=== PATIENT | male | born 1965 | race Caucasian/White ===

== ENCOUNTER 2017-04-04 07:07 | Emergency (ER) | payer BC ==
--- NOTE | 2017-04-04 07:37 | EDM.PDOC ---
ED HPI GENERAL MEDICAL PROBLEM - General Chief Complaint: Chest Pain Stated Complaint: CHEST PAIN Time Seen by Provider: 04/04/17 07:15 Source of Information: Reports: Patient, Family (), RN Notes Reviewed History Limitations: Reports: No Limitations - History of Present Illness INITIAL COMMENTS - FREE TEXT/NARRATIVE: The patient states that he developed left anterior axillary and left sided chest pain around 04:30 this morning while straightening up an office at work. He describes the character as a dull, throbbing pain. It waxes and wanes. It is made worse if the patient is moving around, better if he remains still. No associated nausea, dyspnea, diaphoresis, or sense of impending doom. The patient states that he had similar symptoms in approximately 2007. He went to the ED, a workup was negative, and he subsequently had a stress test that was negative. The patient's PCP is Dr. Lila Butler. Left Chest Pain Score (Numeric/FACES): 5 - Related Data Allergies Allergy/AdvReac Type Severity Reaction Status Date / Time codeine Allergy Severe Shortness Verified 04/04/17 07:13 of Breath cephalexin monohydrate Allergy Hives Verified 04/04/17 07:13 [From Keflex] droperidol [From Inapsine] Allergy Anxiety Verified 04/04/17 07:13 Home Meds: Home Meds Buprenorphine HCl/Naloxone HCl [Suboxone 4 mg-1 mg Sl Film] 1 strip PO DAILY [History] Orphenadrine [Norflex] 1 tab PO Q12H #20 tab.er 04/04/17 [Rx] Past Medical History Musculoskeletal History: Reports: Back Pain, Chronic (due to DDD) Psychiatric History: Reports: Anxiety, Depression Endocrine/Metabolic History: Reports: Obesity/BMI 30+ - Past Surgical History HEENT Surgical History: Reports: Oral Surgery ([place] teeth extraction), Tonsillectomy GI Surgical History: Reports: Hernia, Abdominal Musculoskeletal Surgical History: Reports: Shoulder Surgery (left, arthroscopic) , Other (See Below) (Left hand surgery. 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, [employer]) ED ROS GENERAL - Review of Systems Review Of Systems: See Below Constitutional: Reports: No Symptoms HEENT: Reports: No Symptoms Respiratory: Reports: No Symptoms Cardiovascular: Reports: No Symptoms Endocrine: Reports: No Symptoms GI/Abdominal: Reports: No Symptoms : Reports: No Symptoms Musculoskeletal: Reports: No Symptoms Skin: Reports: No Symptoms Neurological: Reports: No Symptoms Psychiatric: Reports: No Symptoms Hematologic/Lymphatic: Reports: No Symptoms Immunologic: Reports: No Symptoms ED EXAM, GENERAL - Physical Exam Exam: See Below Exam Limited By: No Limitations General Appearance: Alert, WD/WN, No Apparent Distress Eye Exam: Bilateral Eye: Normal Inspection Ears: Normal External Exam, Hearing Grossly Normal Ear Exam: Bilateral Ear: Auricle Normal Nose: Normal Inspection, No Blood Throat/Mouth: Normal Inspection, Normal Lips, Normal Voice, No Airway Compromise Head: Atraumatic, Normocephalic Neck: Normal Inspection, Full Range of Motion Respiratory/Chest: No Respiratory Distress, Lungs Clear, Normal Breath Sounds, No Accessory Muscle Use, Other (Reproducible tenderness to palpation of the lateral aspect of the patient's left pectoral muscle) Cardiovascular: Normal Peripheral Pulses, Regular Rate, Rhythm, No Gallop, No JVD, No Murmur, No Rub Peripheral Pulses: 4+: Radial (L), Radial (R) GI/Abdominal: Normal Bowel Sounds, Soft, Non-Tender, No Organomegaly, No Distention, No Abnormal Bruit, No Mass (Male) Exam: Deferred Rectal (Males) Exam: Deferred Back Exam: Normal Inspection, Full Range of Motion, NT Extremities: Normal Inspection, Normal Range of Motion, No Pedal Edema, Normal Capillary Refill Neurological: Alert, Oriented, Normal Cognition, No Motor/Sensory Deficits Psychiatric: Normal Affect Skin Exam: Warm, Dry, Intact, Normal Color, No Rash Lymphatic: No Adenopathy EKG INTERPRETATION EKG Date: 04/04/17 Time: 07:13 Rhythm: NSR Rate (beats/min): 60 G[place]y: normal P-wave: absent (1st degree AVB) QRS: normal ST-T: normal QT: normal Comparison: no change (07/31/2016) Course - Vital Signs Last Recorded V/S: Last Vital Signs Temp 36.9 C 04/04/17 07:14 Pulse 76 04/04/17 09:07 Resp 12 04/04/17 09:07 BP 140/81 04/04/17 09:07 Pulse Ox 95 04/04/17 09:07 - Orders/Labs/Meds Orders: Active Orders 24 hr Category Date Time Status EKG Documentation Completion [RC] STAT Care 04/04/17 07:27 Active Labs: Laboratory Tests 04/04/17 04/04/17 04/04/17 Range/Units 07:52 07:52 07:52 WBC 8.80 (4.23-9.07) K/mm3 RBC 5.18 (4.63-6.08) M/mm3 Hgb 15.6 (13.7-17.5) gm/L Hct 44.8 (40.1-51.0) % MCV 86.5 (79.0-92.2) fl MCH 30.1 (25.7-32.2) pg MCHC 34.8 (32.2-35.5) g/dl RDW Std Deviation 43.2 (35.1-43.9) fL Plt Count 281 (163-337) K/mm3 MPV 10.5 (9.4-12.3) fl Neutrophils % (Manual) 73 H (40-60) % Band Neutrophils % 0 (0-10) % Lymphocytes % (Manual) 18 L (20-40) % Atypical Lymphs % 0 % Monocytes % (Manual) 6 (2-10) % Eosinophils % (Manual) 3 (0.8-7.0) % Basophils % (Manual) 0 L (0.2-1.2) Platelet Estimate Adequate RBC Morph Comment Normal PT 10.4 (8.0-13.0) SECONDS INR 0.96 APTT 30 (22-36) SECONDS D-Dimer, Quantitative 0.44 (0.19-0.59) mg/L Sodium 139 (136-145) mEq/L Potassium 4.2 (3.5-5.1) mEq/L Chloride 105 (98-107) mEq/L Carbon Dioxide 26 (21-32) mEq/L Anion Gap 12.2 (5-15) BUN 14 (7-18) mg/dL Creatinine 0.8 (0.7-1.3) mg/dL Est Cr Clr Drug Dosing 104.43 mL/min Estimated GFR (MDRD) > 60 (>60) mL/min BUN/Creatinine Ratio 17.5 (14-18) Glucose 107 H (74-106) mg/dL Calcium 9.2 (8.5-10.1) mg/dL Total Bilirubin 0.4 (0.2-1.0) mg/dL AST 17 (15-37) U/L ALT 42 (16-63) U/L Alkaline Phosphatase 78 (46-116) U/L Troponin I < 0.017 (0.00-0.056) ng/mL B-Natriuretic Peptide (0-100) pg/mL Total Protein 7.9 (6.4-8.2) g/dl Albumin 3.9 (3.4-5.0) g/dl Globulin 4.0 gm/dL Albumin/Globulin Ratio 1.0 (1-2) 04/04/17 Range/Units 07:52 WBC (4.23-9.07) K/mm3 RBC (4.63-6.08) M/mm3 Hgb (13.7-17.5) gm/L Hct (40.1-51.0) % MCV (79.0-92.2) fl MCH (25.7-32.2) pg MCHC (32.2-35.5) g/dl RDW Std Deviation (35.1-43.9) fL Plt Count (163-337) K/mm3 MPV (9.4-12.3) fl Neutrophils % (Manual) (40-60) % Band Neutrophils % (0-10) % Lymphocytes % (Manual) (20-40) % Atypical Lymphs % % Monocytes % (Manual) (2-10) % Eosinophils % (Manual) (0.8-7.0) % Basophils % (Manual) (0.2-1.2) Platelet Estimate RBC Morph Comment PT (8.0-13.0) SECONDS INR APTT (22-36) SECONDS D-Dimer, Quantitative (0.19-0.59) mg/L Sodium (136-145) mEq/L Potassium (3.5-5.1) mEq/L Chloride (98-107) mEq/L Carbon Dioxide (21-32) mEq/L Anion Gap (5-15) BUN (7-18) mg/dL Creatinine (0.7-1.3) mg/dL Est Cr Clr Drug Dosing mL/min Estimated GFR (MDRD) (>60) mL/min BUN/Creatinine Ratio (14-18) Glucose (74-106) mg/dL Calcium (8.5-10.1) mg/dL Total Bilirubin (0.2-1.0) mg/dL AST (15-37) U/L ALT (16-63) U/L Alkaline Phosphatase (46-116) U/L Troponin I (0.00-0.056) ng/mL B-Natriuretic Peptide < 15 (0-100) pg/mL Total Protein (6.4-8.2) g/dl Albumin (3.4-5.0) g/dl Globulin gm/dL Albumin/Globulin Ratio (1-2) Meds: Medications Discontinued Medications Generic Name Dose Route Start Last Admin Trade Name Freq PRN Reason Stop Dose Admin Orphenadrine Citrate 100 mg 04/04/17 08:54 04/04/17 09:00 Norflex PO 04/04/17 08:55 100 mg ONETIME STA Administration - Radiology Interpretation Free Text/Narrative:: Two-view chest radiograph appears to be grossly normal. Cardiac silhouette is within normal limits. No pulmonary vascular congestion. No pleural effusions. No focal infiltrate. No pneumothorax. Platelike atelectasis vs. scarring noted bilateral lower lungs, more prominent on the right. Formal read per the Radiologist pending. - Re-Assessments/Exams Free Text/Narrative Re-Assessment/Exam: 04/04/17 08:54 Test results discussed with the patient. Today's workup is entirely unremarkable. As the patient's pain is reproducible with palpation, I believe it most likely that the patient's pain is due to a muscle spasm. I will start him on Norflex and e-prescribe the same. Departure - Departure Time of Disposition: 08:55 Disposition: Home, Self-Care 01 Condition: good Clinical Impression: Musculoskeletal chest pain - Discharge Information Prescriptions: Orphenadrine [Norflex] 1 tab PO Q12H #20 tab.er Instructions: Nonspecific Chest Pain, [id number] Referrals: Lila Butler DO [Primary Care Provider] - Forms: ED Department Discharge Additional Instructions: You were seen in the emergency room for pain in the front of your left armpit and left side of your chest. Workup in the ER included blood work, an ECG, and a chest x-ray. Your entire workup was unremarkable. You have not had a heart attack. You do not have a collapsed lung. You do not have a blood clot in your lungs. Your chest pain is MOST LIKELY due to a muscle spasm. You have been started on the muscle relaxant Norflex. Take one tablet every 12 hours, as prescribed. Followup with your PCP, Dr. Butler, as needed. If any other problems, please do not hesitate to return to the ER. - My Orders Last 24 Hours: My Active Orders 04/04/17 07:27 EKG Documentation Completion [RC] STAT - Assessment/Plan Last 24 Hours: My Active Orders 04/04/17 07:27 EKG Documentation Completion [RC] STAT
[2017-04-04] MEDS ORDERED: Orphenadrine 100 MG Tab.ER PO STA (08:54)
[2017-04-04 09:09] VITALS: BP 140/81
--- NOTE | 2017-04-04 11:28 | CR ---
Chest: Two views of the chest are obtained. Comparison: Previous chest x-ray of 07/31/16. Linear areas of scarring are seen within both lungs which appear stable. No acute infiltrates are seen. Heart size and mediastinum are within normal limits. Bony structures are within normal limits for the patient's age. Impression: 1. Stable areas of scarring within both lungs. Nothing acute is identified on two-view chest x-ray. Diagnostic code #2
== END 2017-04-04 09:09 | disposition home or self-care (01) ==
LOC: JD.ED 07:07
DX: R07.89 Other chest pain (principal); Z87.891 Personal history of nicotine dependence
CPT/HCPCS: 36415; 71020; 80053; 83880; 84484; 85025; 85379; 85610; 85730; 93005; 99285; A9270; 99284

== ENCOUNTER 2019-01-31 00:26 | Emergency (ER) | payer SELFPAY ==
[2019-01-31 00:40] VITALS: BP 145/98
[2019-01-31] MEDS ORDERED: LORazepam 1 MG Tab PO ONE (01:01)
--- NOTE | 2019-01-31 01:07 | EDM.PDOC ---
ED HPI GENERAL MEDICAL PROBLEM - General Chief Complaint: General Stated Complaint: ANXIETY Time Seen by Provider: 01/31/19 00:49 Source of Information: Reports: Patient, Family (), RN Notes Reviewed History Limitations: Reports: No Limitations - History of Present Illness INITIAL COMMENTS - FREE TEXT/NARRATIVE: The patient states that he has been feeling anxious since around 22:00 this evening, with feeling antsy, chest pounding, bouncing off the bedoya, and diaphoresis. He states that he has a history of panic attacks, although he is not currently on any medication for anxiety. The patient reports similar symptoms in the past, including about a year ago. He states that he was given Ativan, and his symptoms resolved. He acknowledges that he did not follow-up after that ED visit. And states that he is willing, however, to go on to a long-term anxiolytic. The patient reports that he went on a Slim Fast keto diet around 1 month ago, and that he has lost 13 pounds so far. He reports that he has been constipated. He states that he quit smoking 8 days ago. The patient's PCP is Ximena Johnson. - Related Data Allergies Allergy/AdvReac Type Severity Reaction Status Date / Time codeine Allergy Severe Shortness Verified 01/31/19 00:40 of Breath cephalexin monohydrate Allergy Hives Verified 01/31/19 00:40 [From Keflex] droperidol [From Inapsine] Allergy Anxiety Verified 01/31/19 00:40 Home Meds: Home Meds . [No Known Home Meds] 01/31/19 [History] Past Medical History Musculoskeletal History: Reports: Back Pain, Chronic (DDD) Psychiatric History: Reports: Anxiety (untreated) Endocrine/Metabolic History: Reports: Obesity/BMI 30+ - Past Surgical History HEENT Surgical History: Reports: Tonsillectomy GI Surgical History: Reports: Hernia, Abdominal (para-umbilical) Musculoskeletal Surgical History: Reports: Shoulder Surgery (left, arthroscopic) , Other (See Below) (Left hand reconstruction) Social & Family History - Family History Oncologic: Reports: Breast, Colon, Lung - Tobacco Use Smoking Status *Q: Former Smoker Years of Tobacco use: 37 Packs/Tins Daily: 1 Month/Year Tobacco Last Used: Quit 01/22/2019 - Caffeine Use Caffeine Use: Reports: Coffee - Alcohol Use Alcohol Use History: Yes Date/Time of Last Drink Comment: No alcohol since 2009 - Recreational Drug Use Recreational Drug Use: No - Living Situation & Occupation Living situation: Reports: , with Spouse 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 ED EXAM, GENERAL - Physical Exam Exam: See Below Exam Limited By: No Limitations General Appearance: Alert, WD/WN, Anxious (Pacing in exam room) Eye Exam: Bilateral Eye: EOMI, Normal Inspection Ears: Normal External Exam, Hearing Grossly Normal Nose: Normal Inspection Throat/Mouth: Normal Inspection, Normal Lips, Normal Voice, No Airway Compromise Head: Atraumatic, Normocephalic Neck: Normal Inspection, Full Range of Motion Respiratory/Chest: No Respiratory Distress, Lungs Clear, Normal Breath Sounds, No Accessory Muscle Use Cardiovascular: Normal Peripheral Pulses, Regular Rate, Rhythm, No Gallop, No JVD, No Murmur, No Rub Peripheral Pulses: 4+: Radial (L), Radial (R) GI/Abdominal: Normal Bowel Sounds, Soft, Non-Tender, No Organomegaly, No Distention, No Abnormal Bruit, No Mass, Other (Obese) (Male) Exam: Deferred Rectal (Males) Exam: Deferred Back Exam: Normal Inspection, Full Range of Motion, NT Extremities: Normal Inspection, Normal Range of Motion, No Pedal Edema, Normal Capillary Refill Neurological: Alert, Oriented, Normal Cognition, No Motor/Sensory Deficits Psychiatric: Normal Affect Skin Exam: Warm, Dry, Intact, Normal Color, No Rash Course - Vital Signs Last Recorded V/S: Last Vital Signs Temp 36.9 C 01/31/19 00:37 Pulse 65 01/31/19 00:37 Resp 18 01/31/19 00:37 BP 145/98 H 01/31/19 00:37 Pulse Ox 98 01/31/19 00:37 - Orders/Labs/Meds Meds: Medications Discontinued Medications Generic Name Dose Route Start Last Admin Trade Name Christiana PRN Reason Stop Dose Admin Lorazepam 1 mg 01/31/19 01:01 01/31/19 01:15 Ativan PO 01/31/19 01:02 1 mg ONETIME ONE Administration - Re-Assessments/Exams Free Text/Narrative Re-Assessment/Exam: 01/31/19 01:03 The patient will receive 1 mg of oral Ativan here in the ED, then be discharged home. He will then follow-up with his PCP to discuss long-term treatment options for anxiety. Departure - Departure Time of Disposition: 01:04 Disposition: Home, Self-Care 01 Condition: Good Clinical Impression: Anxiety - Discharge Information *PRESCRIPTION DRUG MONITORING PROGRAM REVIEWED*: Not Applicable *COPY OF PRESCRIPTION DRUG MONITORING REPORT IN PATIENT MANDO: Not Applicable Instructions: Generalized Anxiety Disorder, Adult Referrals: Ximena Johnson, DORMITORY KEEPER [Primary Care Provider] - Forms: ED Department Discharge Additional Instructions: You were seen in the emergency room for feelings of anxiety with chest pounding , agitation, and sweatiness. You were treated with Ativan in the ER. Ativan is not a good long-term solution for anxiety. Please follow-up with your PCP, Ximena Johnson, to discuss long-term treatment options for anxiety, that will likely include a SSRI or SNRI. If any other problems, please do not hesitate to return to the ER.
== END 2019-01-31 01:16 | disposition home or self-care (01) ==
LOC: JD.ED 00:26
DX: F41.9 Anxiety disorder, unspecified (principal); Z88.8 Allergy status to other drugs, medicaments and biological substances; Z87.891 Personal history of nicotine dependence
CPT/HCPCS: 99283; A9270

== ENCOUNTER 2020-09-17 16:34 | Observation (INO) | payer OTHER ==
[2020-09-17] MEDS ORDERED: Ondansetron 4 MG/2 ML SDV IVPUSH ONE (16:55)
[2020-09-17] MEDS ORDERED: HYDROmorphone 1 MG/ML Syringe IVPUSH STA (16:55)
[2020-09-17] MEDS ORDERED: Sodium Chloride 0.9% 1,000 ML IV SCH (17:00)
--- NOTE | 2020-09-17 17:04 | EDM.PDOC ---
ED HPI GENERAL MEDICAL PROBLEM - General Chief Complaint: Abdominal Pain Stated Complaint: ABDOMINAL PAIN Time Seen by Provider: 09/17/20 16:45 Source of Information: Reports: Patient, RN Notes Reviewed History Limitations: Reports: No Limitations - History of Present Illness INITIAL COMMENTS - FREE TEXT/NARRATIVE: Patient is a 54-year-old male who presents to the ED for the evaluation of his upper abdominal pain. He notes this started about 11 AM. He states that it went away initially, now has been steady for about the past 2 hours. He points to his epigastric region, and somewhat towards the left side when asked where the pain is. He has had a hernia repair, but still retains his gallbladder and appendix. Patient notes that he had tacos last night for food, and ate some leftover tacos this morning. He has tried Gas-X, and other anti-gas medications, as he felt somewhat bloated. He also notes that his had 2 bowel movements today. He denies any nausea vomiting or diarrhea, he is not had any fevers or chills, cough or shortness of breath. Patient is somewhat diaphoretic, and walking about the room sporadically, stating that he is in pain. Upper Abdomen Pain Score (Numeric/FACES): 10 - Related Data Allergies Allergy/AdvReac Type Severity Reaction Status Date / Time codeine Allergy Severe Shortness Verified 01/31/19 00:40 of Breath cephalexin monohydrate Allergy Hives Verified 01/31/19 00:40 [From Keflex] droperidol [From Inapsine] Allergy Anxiety Verified 01/31/19 00:40 Home Meds: Home Meds Buprenorphine HCl/Naloxone HCl [Suboxone 4 mg-1 mg Sl Film] 1 tab PO DAILY 09/17/20 [History] Past Medical History Musculoskeletal History: Reports: Back Pain, Chronic Other Musculoskeletal History: Herniated L4, L5, S1 Psychiatric History: Reports: Anxiety Endocrine/Metabolic History: Reports: Obesity/BMI 30+ - Past Surgical History HEENT Surgical History: Reports: Tonsillectomy GI Surgical History: Reports: Hernia, Abdominal (umbilical hernia repaired when he was a baby.) Neurological Surgical History: Reports: Other (See Below) Other Neurological Surgeries/Procedures: back pain with ruptured disc L4-5 and S1 Musculoskeletal Surgical History: Reports: Shoulder Surgery, Other (See Below) Social & Family History - Family History Oncologic: Reports: Breast, Colon, Lung - Tobacco Use Tobacco Use Status *Q: Never Tobacco User - Caffeine Use Caffeine Use: Reports: Coffee, Soda - Recreational Drug Use Recreational Drug Use: Yes Recreational Drug Type: Reports: Other (see below) Other Recreational Drug Type: timbo-tab Recreational Drug Use Comment: 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 ED EXAM, GI/ABD - Physical Exam Exam: See Below Exam Limited By: No Limitations General Appearance: Alert, WD/WN, No Apparent Distress (pt appears to be in some amount of pain, he is diaphoretic and looks generaly uncomfortable) Eyes: Bilateral: Normal Appearance Head: Atraumatic, Normocephalic Respiratory/Chest: No Respiratory Distress, Lungs Clear, Normal Breath Sounds, No Accessory Muscle Use, Chest Non-Tender Cardiovascular: Normal Peripheral Pulses, Regular Rate, Rhythm, No Murmur GI/Abdominal Exam: Normal Bowel Sounds, Soft, No Distention, No Mass, Tender (epigastrum is main focus, but he states that his abdomen is generally tender) Extremities: Normal Inspection, Normal Capillary Refill Neurological: Alert, Oriented, Normal Cognition, No Motor/Sensory Deficits Psychiatric: Anxious Skin Exam: Warm, Intact, Normal Color, No Rash, Diaphoretic (generalized) #1 Interpretation EKG Date: 09/17/20 Time: 18:05 Rhythm: NSR Rate (Beats/Min): 66 Julian: Normal P-Wave: Present QRS: Normal ST-T: Normal QT: Normal Comparison: No Change EKG Interpretation Comments: EKG was reviewed by myself and Dr. Love, there is no obvious ischemic change. EKG was also compared to a prior one taken in March 2017 with no discernible change noted. Course - Vital Signs Last Recorded V/S: Last Vital Signs Temp 95.3 F L 09/17/20 16:51 Pulse 91 09/17/20 16:51 Resp 20 09/17/20 16:51 BP 162/107 H 09/17/20 16:51 Pulse Ox 100 09/17/20 16:51 - Orders/Labs/Meds Orders: Active Orders 24 hr Category Date Time Status Patient Status [ADT] Routine ADT 09/17/20 20:12 Active Activity as Tolerated [RC] .Routine Care 09/17/20 20:12 Active Antiembolic Devices [RC] PER UNIT ROUTINE Care 09/17/20 20:12 Active EKG Documentation Completion [RC] STAT Care 09/17/20 16:56 Active Notify Provider Consults [RC] ASDIRECTED Care 09/17/20 19:25 Ordered Oxygen Therapy [RC] PRN Care 09/17/20 20:12 Active RT Incentive Spirometry [RC] Q1HWA Care 09/17/20 20:12 Active Vital Signs [RC] Q4H Care 09/17/20 20:12 Active Consult to Physician [CONS] Stat Cons 09/17/20 19:25 Ordered Nothing Per Oral Diet [DIET] Diet 09/17/20 Breakfast Active Abdomen Pelvis w Cont [CT] Stat Exams 09/17/20 16:55 Ordered BASIC METABOLIC PANEL,BMP [CHEM] AM Lab 09/18/20 05:11 Ordered CBC WITH AUTO DIFF [HEME] AM Lab 09/18/20 05:11 Ordered CORONAVIRUS COVID-19 DEBORAH [MOLEC] Stat Lab 09/17/20 20:08 Ordered Acetaminophen [TylenoL] Med 09/17/20 20:15 Ordered 975 mg PO Q8H HYDROmorphone [Dilaudid] Med 09/17/20 20:14 Ordered 1 mg IVPUSH Q3H PRN Lactated Ringers [Ringers, Lactated] 1,000 ml Med 09/17/20 20:15 Ordered IV ASDIRECTED Pantoprazole [ProTONIX IV] 40 mg Med 09/17/20 21:00 Ordered Sodium Chloride 0.9% [Normal Saline] 100 ml IV BID Sodium Chloride 0.9% [Normal Saline] 1,000 ml Med 09/17/20 17:00 Active IV ASDIRECTED Sucralfate [Carafate] Med 09/17/20 22:00 Ordered 1 gm PO QIDACANDBED Schedule Procedure [COMM] Routine Oth 09/17/20 20:15 Ordered Sequential Compression Device [OM.PC] Routine Oth 09/17/20 20:12 Ordered Resuscitation Status Routine Resus Stat 09/17/20 20:12 Ordered Medication Orders Acetaminophen (Tylenol) 975 mg PO Q8H LOVELY Hydromorphone HCl (Dilaudid) 1 mg IVPUSH Q3H PRN PRN Reason: Pain Sodium Chloride (Normal Saline) 1,000 mls @ 999 mls/hr IV ASDIRECTED [facility] Last Admin: 09/17/20 17:27 Dose: 999 mls/hr Documented by: COOPER Lactated Ringer's (Ringers, Lactated) 1,000 mls @ 100 mls/hr IV ASDIRECTED LOVELY Pantoprazole Sodium 40 mg/ (Sodium Chloride) 100 mls @ 200 mls/hr IV BID LOVELY Sucralfate (Carafate) 1 gm PO QIDACANDBED [facility] Labs: Laboratory Tests 09/17/20 09/17/20 09/17/20 Range/Units 16:45 16:45 16:45 WBC 14.54 H (4.23-9.07) K/mm3 RBC 5.75 (4.63-6.08) M/mm3 Hgb 17.0 (13.7-17.5) gm/dl Hct 48.0 (40.1-51.0) % MCV 83.5 D (79.0-92.2) fl MCH 29.6 (25.7-32.2) pg MCHC 35.4 (32.2-35.5) g/dl RDW Std Deviation 41.6 (35.1-43.9) fL Plt Count 391 H D (163-337) K/mm3 MPV 9.9 (9.4-12.3) fl Neutrophils % (Manual) 74 H (40-60) % Band Neutrophils % 0 (0-10) % Lymphocytes % (Manual) 19 L (20-40) % Atypical Lymphs % 0 % Monocytes % (Manual) 6 (2-10) % Eosinophils % (Manual) 1 (0.8-7.0) % Basophils % (Manual) 0 L (0.2-1.2) Platelet Estimate Adequate RBC Morph Comment Normal Sodium 139 (136-145) mEq/L Potassium 3.8 (3.5-5.1) mEq/L Chloride 102 (98-107) mEq/L Carbon Dioxide 26 (21-32) mEq/L Anion Gap 14.8 (5-15) BUN 24 H (7-18) mg/dL Creatinine 1.0 (0.7-1.3) mg/dL Est Cr Clr Drug Dosing 80.79 mL/min Estimated GFR (MDRD) > 60 (>60) mL/min BUN/Creatinine Ratio 24.0 H (14-18) Glucose 144 H (74-106) mg/dL Calcium 10.0 (8.5-10.1) mg/dL Total Bilirubin 0.5 (0.2-1.0) mg/dL AST 19 (15-37) U/L ALT 48 (16-63) U/L Alkaline Phosphatase 92 (46-116) U/L CK-MB (CK-2) 1.6 (0-3.6) ng/ml Troponin I < 0.017 (0.00-0.056) ng/mL Total Protein 9.0 H (6.4-8.2) g/dl Albumin 4.5 (3.4-5.0) g/dl Globulin 4.5 gm/dL Albumin/Globulin Ratio 1.0 (1-2) Lipase 63 L (73-393) U/L Urine Color (Yellow) Urine Appearance (Clear) Urine pH (5.0-8.0) Ur Specific [place] (1.005-1.030) Urine Protein (Negative) Urine Glucose (UA) (Negative) Urine Ketones (Negative) Urine Occult Blood (Negative) Urine Nitrite (Negative) Urine Bilirubin (Negative) Urine Urobilinogen (0.2-1.0) Ur Leukocyte Esterase (Negative) Urine RBC (0-5) /hpf Urine WBC (0-5) /hpf Ur Squamous Epith Cells (0-5) /hpf Urine Bacteria (FEW) /hpf Urine Mucus (FEW) /hpf 09/17/20 Range/Units 18:50 WBC (4.23-9.07) K/mm3 RBC (4.63-6.08) M/mm3 Hgb (13.7-17.5) gm/dl Hct (40.1-51.0) % MCV (79.0-92.2) fl MCH (25.7-32.2) pg MCHC (32.2-35.5) g/dl RDW Std Deviation (35.1-43.9) fL Plt Count (163-337) K/mm3 MPV (9.4-12.3) fl Neutrophils % (Manual) (40-60) % Band Neutrophils % (0-10) % Lymphocytes % (Manual) (20-40) % Atypical Lymphs % % Monocytes % (Manual) (2-10) % Eosinophils % (Manual) (0.8-7.0) % Basophils % (Manual) (0.2-1.2) Platelet Estimate RBC Morph Comment Sodium (136-145) mEq/L Potassium (3.5-5.1) mEq/L Chloride (98-107) mEq/L Carbon Dioxide (21-32) mEq/L Anion Gap (5-15) BUN (7-18) mg/dL Creatinine (0.7-1.3) mg/dL Est Cr Clr Drug Dosing mL/min Estimated GFR (MDRD) (>60) mL/min BUN/Creatinine Ratio (14-18) Glucose (74-106) mg/dL Calcium (8.5-10.1) mg/dL Total Bilirubin (0.2-1.0) mg/dL AST (15-37) U/L ALT (16-63) U/L Alkaline Phosphatase (46-116) U/L CK-MB (CK-2) (0-3.6) ng/ml Troponin I (0.00-0.056) ng/mL Total Protein (6.4-8.2) g/dl Albumin (3.4-5.0) g/dl Globulin gm/dL Albumin/Globulin Ratio (1-2) Lipase (73-393) U/L Urine Color Yellow (Yellow) Urine Appearance Clear (Clear) Urine pH 7.0 (5.0-8.0) Ur Specific [place] 1.020 (1.005-1.030) Urine Protein Negative (Negative) Urine Glucose (UA) Negative (Negative) Urine Ketones Negative (Negative) Urine Occult Blood Negative (Negative) Urine Nitrite Negative (Negative) Urine Bilirubin Negative (Negative) Urine Urobilinogen 0.2 (0.2-1.0) Ur Leukocyte Esterase Negative (Negative) Urine RBC 0-5 (0-5) /hpf Urine WBC 0-5 (0-5) /hpf Ur Squamous Epith Cells 0-5 (0-5) /hpf Urine Bacteria Few (FEW) /hpf Urine Mucus Few (FEW) /hpf Meds: Medications Generic Name Dose Route Start Last Admin Trade Name Freq PRN Reason Stop Dose Admin Acetaminophen 975 mg 09/17/20 20:15 Tylenol PO Q8H LOVELY Hydromorphone HCl 1 mg 09/17/20 20:14 Dilaudid IVPUSH Q3H PRN Pain Sodium Chloride 1,000 mls @ 999 mls/hr 09/17/20 17:00 09/17/20 17:27 Normal Saline IV 999 mls/hr ASDIRECTED LOVELY Administration Lactated Ringer's 1,000 mls @ 100 mls/hr 09/17/20 20:15 Ringers, Lactated IV ASDIRECTED LOVELY Pantoprazole Sodium 40 mg/ 100 mls @ 200 mls/hr 09/17/20 21:00 Sodium Chloride IV BID LOVELY Sucralfate 1 gm 09/17/20 22:00 Carafate PO QIDACANDBED LOVELY Discontinued Medications Generic Name Dose Route Start Last Admin Trade Name Freq PRN Reason Stop Dose Admin Diatrizoate Meglum/Diatrizoate Sod 90 ml 09/17/20 18:09 09/17/20 18:45 Gastrografin 37% PO 09/17/20 18:10 90 ml ONETIME ONE Administration Hydromorphone HCl 1 mg 09/17/20 16:55 09/17/20 17:27 Dilaudid IVPUSH 09/17/20 16:56 1 mg ONETIME STA Administration Iopamidol 100 ml 09/17/20 18:09 09/17/20 18:45 Isovue-300 (61%) IVPUSH 09/17/20 18:10 100 ml ONETIME ONE Administration Ondansetron HCl 4 mg 09/17/20 16:55 09/17/20 17:28 Zofran IVPUSH 09/17/20 16:56 4 mg ONETIME ONE Administration Pantoprazole Sodium 40 mg 09/17/20 20:08 Protonix Iv IVPUSH 09/17/20 20:09 ONETIME ONE - Re-Assessments/Exams Free Text/Narrative Re-Assessment/Exam: 09/17/20 17:03 The patient presents to the ED for evaluation of his ongoing abdomen pain. Have ordered some labs, EKG, abdomen pelvis CT with IV and oral contrast, IV fluids, pain medications and nausea medications for initial management. 09/17/20 18:38 Patient's laboratory evaluation demonstrates a mildly elevated white count at 14.54, 74% neutrophils and no bands. Troponin was undetectably low, EKG was negative for any acute changes. Metabolic panel was essentially unremarkable otherwise. CT is still pending. Patient states that he did get quite a bit of relief from the Dilaudid that was given. 09/17/20 19:[address] demonstrates multiple loops of dilated fluid-filled small bowel that may represent obstruction or ileus, and more distally the small bowel tapers. All other structures appeared normal or unremarkable. At this time I have called Dr. Edmond for consultation on this patient, he will be in to examine the patient and review CT, and give recommendations for further management. 09/17/20 20:22 Dr. Edmond was in to evaluate the patient, and states that he could probably benefit from overnight observation and EGD in the morning, along with pain control overnight. Fortunately we do have an observation bed available. COVID-19 swab is pending, and I ordered 40 mg IV Protonix for PPI management per Dr. Edmond's request. Departure - Departure Time of Disposition: 20:23 Disposition: Refer to Observation Condition: Good Clinical Impression: Epigastric pain - Discharge Information *PRESCRIPTION DRUG MONITORING PROGRAM REVIEWED*: No *COPY OF PRESCRIPTION DRUG MONITORING REPORT IN PATIENT MANDO: No Referrals: PCP,None [Primary Care Provider] - Forms: ED Department Discharge Sepsis Event Note (ED) - Evaluation Sepsis Screening Result: No Definite Risk - Focused Exam Vital Signs: Vital Signs Temp Pulse Resp BP Pulse Ox 09/17/20 16:51 95.3 F L 91 20 162/107 H 100 - My Orders Last 24 Hours: My Active Orders 09/17/20 16:55 Abdomen Pelvis w Cont [CT] Stat 09/17/20 16:56 EKG Documentation Completion [RC] STAT 09/17/20 17:00 Sodium Chloride 0.9% [Normal Saline] 1,000 ml IV ASDIRECTED 09/17/20 19:25 Notify Provider Consults [RC] ASDIRECTED Consult to Physician [CONS] Stat 09/17/20 20:08 CORONAVIRUS COVID-19 DEBORAH [MOLEC] Stat - Assessment/Plan Last 24 Hours: My Active Orders 09/17/20 16:55 Abdomen Pelvis w Cont [CT] Stat 09/17/20 16:56 EKG Documentation Completion [RC] STAT 09/17/20 17:00 Sodium Chloride 0.9% [Normal Saline] 1,000 ml IV ASDIRECTED 09/17/20 19:25 Notify Provider Consults [RC] ASDIRECTED Consult to Physician [CONS] Stat 09/17/20 20:08 CORONAVIRUS COVID-19 DEBORAH [MOLEC] Stat
[2020-09-17] MEDS ORDERED: Diatrizoate Meglumine/Diatrizoate Sodium 37% 120 ML Bottle PO ONE (18:09)
[2020-09-17] MEDS ORDERED: Iopamidol 612 MG/ML 100 ML Bottle IVPUSH ONE (18:09)
[2020-09-17] MEDS ORDERED: Pantoprazole 40 MG Vial IVPUSH ONE (20:08)
--- NOTE | 2020-09-17 20:21 | PCM.HP.2 ---
H&P History of Present Illness - General Date of Service: 09/17/20 Admit Problem/Dx: Admission Diagnosis/Problem Admission Diagnosis/Problem Peptic ulcer Source of Information: Patient History Limitations: Reports: No Limitations - History of Present Illness Other HPI/Comments: Mr. Wei is a 54 yo man with history of chronic pain and past opioid abuse who presents today with abdominal pain. After eating some leftover tacos at 11 AM today, he developed abrupt onset severe epigastric pain. The pain has been unremitting since onset until coming to the ER and receiving pain medication. His pain is a little worse when taking PO. On review, he reports remote history of peptic ulcer disease and had upper endoscopy in his 20s and was placed on PPI treatment. He has not been taking any antacid medication regularly. Though his memory is vague, he thinks this current pain is similar to the pain he had with his ulcer in the past. He has not had any nausea or vomiting. He has been passing flatus today. He usually has a bowel movement every other day. He had a primary repair of an umbilical hernia as an , but has no history of other abdominal operations. Currently, his abdomen is soft, mildly distended, and not tender to palpation. His lab work shows a WBC of about 14,000, through the rest of his lab work indicates mild dehydration. His lipase is normal. He denies any current alcohol or drug use. A CT scan is fairly unremarkable, but shows some mild dilation of the small bowel with tapering of the distal ileum, without clear evidence of obstruction. There is no free fluid or pneumoperitoneum. Upper Abdomen Pain Score (Numeric/FACES): 10 - Related Data Allergies/Adverse Reactions: Allergies Allergy/AdvReac Type Severity Reaction Status Date / Time codeine Allergy Severe Shortness Verified 01/31/19 00:40 of Breath cephalexin monohydrate Allergy Hives Verified 01/31/19 00:40 [From Keflex] droperidol [From Inapsine] Allergy Anxiety Verified 01/31/19 00:40 Home Medications: Home Meds Buprenorphine HCl/Naloxone HCl [Suboxone 4 mg-1 mg Sl Film] 1 tab PO DAILY 09/17/20 [History] Past Medical History - Past Health History Medical/Surgical History: Denies Medical/Surgical History Musculoskeletal History: Reports: Back Pain, Chronic Other Musculoskeletal History: Herniated L4, L5, S1 Psychiatric History: Reports: Anxiety Endocrine/Metabolic History: Reports: Obesity/BMI 30+ - Past Surgical History HEENT Surgical History: Reports: Tonsillectomy GI Surgical History: Reports: Hernia, Abdominal (umbilical hernia repaired when he was a baby.) Neurological Surgical History: Reports: Other (See Below) Other Neurological Surgeries/Procedures: back pain with ruptured disc L4-5 and S1 Musculoskeletal Surgical History: Reports: Shoulder Surgery, Other (See Below) Social & Family History - Family History Oncologic: Reports: Breast, Colon, Lung - Tobacco Use Tobacco Use Status *Q: Never Tobacco User - Caffeine Use Caffeine Use: Reports: Coffee, Soda - Recreational Drug Use Recreational Drug Use: Yes Recreational Drug Type: Reports: Other (see below) Other Recreational Drug Type: timbo-tab - Living Situation & Occupation Living situation: Reports: , with Spouse Occupation: Employed ([employer], [employer]) H&P Review of Systems - Review of Systems: Review Of Systems: See Below General: Reports: Malaise, Diaphoresis, Weight Gain HEENT: Reports: No Symptoms Pulmonary: Reports: No Symptoms Cardiovascular: Reports: No Symptoms Gastrointestinal: Reports: Abdominal Pain, Flatus Genitourinary: Reports: No Symptoms Musculoskeletal: Reports: No Symptoms Skin: Reports: No Symptoms Psychiatric: Reports: No Symptoms Neurological: Reports: No Symptoms Hematologic/Lymphatic: Reports: No Symptoms Immunologic: Reports: No Symptoms Exam - Exam Exam: See Below - Vital Signs Vital Signs: Last Vital Signs Temp 35.2 C L 09/17/20 16:51 Pulse 91 09/17/20 16:51 Resp 20 09/17/20 16:51 BP 162/107 H 09/17/20 16:51 Pulse Ox 100 09/17/20 16:51 Weight: 99.79 kg - Exam General: Alert, Oriented, Mild Distress HEENT: Conjunctiva Clear, EOMI Neck: Supple Lungs: Clear to Auscultation, Normal Respiratory Effort Cardiovascular: Regular Rate, Regular Rhythm GI/Abdominal Exam: Soft, Non-Tender, No Mass Extremities: Normal Inspection Skin: Warm, Dry Neuro Extensive - Mental Status: Alert, Oriented x3 Psychiatric: Alert, Normal Affect - Patient Data Lab Results Last 24 hrs: Laboratory Results - last 24 hr 09/17/20 09/17/20 09/17/20 Range/Units 16:45 16:45 16:45 WBC 14.54 H (4.23-9.07) K/mm3 RBC 5.75 (4.63-6.08) M/mm3 Hgb 17.0 (13.7-17.5) gm/dl Hct 48.0 (40.1-51.0) % MCV 83.5 D (79.0-92.2) fl MCH 29.6 (25.7-32.2) pg MCHC 35.4 (32.2-35.5) g/dl RDW Std Deviation 41.6 (35.1-43.9) fL Plt Count 391 H D (163-337) K/mm3 MPV 9.9 (9.4-12.3) fl Neutrophils % (Manual) 74 H (40-60) % Band Neutrophils % 0 (0-10) % Lymphocytes % (Manual) 19 L (20-40) % Atypical Lymphs % 0 % Monocytes % (Manual) 6 (2-10) % Eosinophils % (Manual) 1 (0.8-7.0) % Basophils % (Manual) 0 L (0.2-1.2) Platelet Estimate Adequate RBC Morph Comment Normal Sodium 139 (136-145) mEq/L Potassium 3.8 (3.5-5.1) mEq/L Chloride 102 (98-107) mEq/L Carbon Dioxide 26 (21-32) mEq/L Anion Gap 14.8 (5-15) BUN 24 H (7-18) mg/dL Creatinine 1.0 (0.7-1.3) mg/dL Est Cr Clr Drug Dosing 80.79 mL/min Estimated GFR (MDRD) > 60 (>60) mL/min BUN/Creatinine Ratio 24.0 H (14-18) Glucose 144 H (74-106) mg/dL Calcium 10.0 (8.5-10.1) mg/dL Total Bilirubin 0.5 (0.2-1.0) mg/dL AST 19 (15-37) U/L ALT 48 (16-63) U/L Alkaline Phosphatase 92 (46-116) U/L CK-MB (CK-2) 1.6 (0-3.6) ng/ml Troponin I < 0.017 (0.00-0.056) ng/mL Total Protein 9.0 H (6.4-8.2) g/dl Albumin 4.5 (3.4-5.0) g/dl Globulin 4.5 gm/dL Albumin/Globulin Ratio 1.0 (1-2) Lipase 63 L (73-393) U/L Urine Color (Yellow) Urine Appearance (Clear) Urine pH (5.0-8.0) Ur Specific [place] (1.005-1.030) Urine Protein (Negative) Urine Glucose (UA) (Negative) Urine Ketones (Negative) Urine Occult Blood (Negative) Urine Nitrite (Negative) Urine Bilirubin (Negative) Urine Urobilinogen (0.2-1.0) Ur Leukocyte Esterase (Negative) Urine RBC (0-5) /hpf Urine WBC (0-5) /hpf Ur Squamous Epith Cells (0-5) /hpf Urine Bacteria (FEW) /hpf Urine Mucus (FEW) /hpf 09/17/20 Range/Units 18:50 WBC (4.23-9.07) K/mm3 RBC (4.63-6.08) M/mm3 Hgb (13.7-17.5) gm/dl Hct (40.1-51.0) % MCV (79.0-92.2) fl MCH (25.7-32.2) pg MCHC (32.2-35.5) g/dl RDW Std Deviation (35.1-43.9) fL Plt Count (163-337) K/mm3 MPV (9.4-12.3) fl Neutrophils % (Manual) (40-60) % Band Neutrophils % (0-10) % Lymphocytes % (Manual) (20-40) % Atypical Lymphs % % Monocytes % (Manual) (2-10) % Eosinophils % (Manual) (0.8-7.0) % Basophils % (Manual) (0.2-1.2) Platelet Estimate RBC Morph Comment Sodium (136-145) mEq/L Potassium (3.5-5.1) mEq/L Chloride (98-107) mEq/L Carbon Dioxide (21-32) mEq/L Anion Gap (5-15) BUN (7-18) mg/dL Creatinine (0.7-1.3) mg/dL Est Cr Clr Drug Dosing mL/min Estimated GFR (MDRD) (>60) mL/min BUN/Creatinine Ratio (14-18) Glucose (74-106) mg/dL Calcium (8.5-10.1) mg/dL Total Bilirubin (0.2-1.0) mg/dL AST (15-37) U/L ALT (16-63) U/L Alkaline Phosphatase (46-116) U/L CK-MB (CK-2) (0-3.6) ng/ml Troponin I (0.00-0.056) ng/mL Total Protein (6.4-8.2) g/dl Albumin (3.4-5.0) g/dl Globulin gm/dL Albumin/Globulin Ratio (1-2) Lipase (73-393) U/L Urine Color Yellow (Yellow) Urine Appearance Clear (Clear) Urine pH 7.0 (5.0-8.0) Ur Specific [place] 1.020 (1.005-1.030) Urine Protein Negative (Negative) Urine Glucose (UA) Negative (Negative) Urine Ketones Negative (Negative) Urine Occult Blood Negative (Negative) Urine Nitrite Negative (Negative) Urine Bilirubin Negative (Negative) Urine Urobilinogen 0.2 (0.2-1.0) Ur Leukocyte Esterase Negative (Negative) Urine RBC 0-5 (0-5) /hpf Urine WBC 0-5 (0-5) /hpf Ur Squamous Epith Cells 0-5 (0-5) /hpf Urine Bacteria Few (FEW) /hpf Urine Mucus Few (FEW) /hpf Result Diagrams: 09/17/20 16:45 09/17/20 16:45 Sepsis Event Note - Evaluation Sepsis Screening Result: No Definite Risk - Focused Exam Vital Signs: Vital Signs Temp Pulse Resp BP Pulse Ox 09/17/20 16:51 35.2 C L 91 20 162/107 H 100 Problem List Initiated/Reviewed/Updated: Yes Orders Last 24hrs: Active Orders 24 hr Category Date Time Status Patient Status [ADT] Routine ADT 09/17/20 20:12 Ordered Activity as Tolerated [RC] .Routine Care 09/17/20 20:12 Ordered Antiembolic Devices [RC] PER UNIT ROUTINE Care 09/17/20 20:12 Ordered EKG Documentation Completion [RC] STAT Care 09/17/20 16:56 Active Notify Provider Consults [RC] ASDIRECTED Care 09/17/20 19:25 Active Oxygen Therapy [RC] PRN Care 09/17/20 20:12 Ordered RT Incentive Spirometry [RC] Q1HWA Care 09/17/20 20:12 Ordered Vital Signs [RC] Q4H Care 09/17/20 20:12 Ordered Consult to Physician [CONS] Stat Cons 09/17/20 19:25 Active Nothing Per Oral Diet [DIET] Diet 09/17/20 Breakfast Ordered Abdomen Pelvis w Cont [CT] Stat Exams 09/17/20 16:55 Taken BASIC METABOLIC PANEL,BMP [CHEM] AM Lab 09/18/20 05:11 Ordered CBC WITH AUTO DIFF [HEME] AM Lab 09/18/20 05:11 Ordered CORONAVIRUS COVID-19 DEBORAH [MOLEC] Stat Lab 09/17/20 20:08 Ordered Acetaminophen [TylenoL] Med 09/17/20 20:15 Ordered 975 mg PO Q8H HYDROmorphone [Dilaudid] Med 09/17/20 20:14 Ordered 1 mg IVPUSH Q3H PRN Lactated Ringers @ 100 MLS/HR(1000ml Bag) Med 09/17/20 20:15 Ordered Lactated Ringers [Ringers, Lactated] 1,000 ml IV ASDIRECTED Pantoprazole [ProTONIX IV] 40 mg Med 09/17/20 21:00 Ordered Sodium Chloride 0.9% [Normal Saline] 100 ml IV BID Sodium Chloride 0.9% [Normal Saline] 1,000 ml Med 09/17/20 17:00 Active IV ASDIRECTED Sucralfate [Carafate] Med 09/17/20 22:00 Ordered 1 gm PO QIDACANDBED Schedule Procedure [COMM] Routine Oth 09/17/20 20:15 Ordered Sequential Compression Device [OM.PC] Routine Oth 09/17/20 20:12 Ordered Resuscitation Status Routine Resus Stat 09/17/20 20:12 Ordered Medication Orders Acetaminophen (Tylenol) 975 mg PO Q8H [facility] Hydromorphone HCl (Dilaudid) 1 mg IVPUSH Q3H PRN PRN Reason: Pain Sodium Chloride (Normal Saline) 1,000 mls @ 999 mls/hr IV ASDIRECTED [facility] Last Admin: 09/17/20 17:27 Dose: 999 mls/hr Documented by: COOPER Lactated Ringer's (Ringers, Lactated) 1,000 mls @ 100 mls/hr IV ASDIRECTED [facility] Pantoprazole Sodium 40 mg/ (Sodium Chloride) 100 mls @ 200 mls/hr IV BID [facility] Sucralfate (Carafate) 1 gm PO QIDACANDBED [facility] Assessment/Plan Comment:: Acute severe epigastric pain in patient with history of peptic ulcer disease- description of pain seems most fitting with gastric ulcer, and lipase is normal, ruling out pancreatitis. Differential includes acute cholecystitis but patient has a negative Sung sign on exam and pain is more diffuse than just at the right upper quadrant. CT report raises question of obstruction vs ileus- however, patient doesn't have signs to suggest acute infectious process or food poisoning and he has been passing flatus and stool today. His surgical history indicates a low likelihood of SBO from adhesions. Plan to admit for pain control, fluid resuscitation, monitoring, initiation of PPI treatment and diagnostic upper endoscopy in the morning. - Mortality Measure Prognosis:: Good
[2020-09-17] MEDS: Acetaminophen 325 MG Tab PO SCH (20:59)
[2020-09-17] MEDS: Lactated Ringers 1,000 ML IV SCH (20:59)
[2020-09-17] MEDS ORDERED: Pantoprazole 40 MG in Sodium Chloride 0.9% 100 ML IV SCH (21:00)
[2020-09-17] MEDS: HYDROmorphone 1 MG/ML Syringe IVPUSH PRN (21:10)
[2020-09-17] MEDS ORDERED: Pantoprazole 40 MG in Sodium Chloride 0.9% 100 ML IV ONE (23:45)
[2020-09-17] MEDS: Sucralfate 1 GM Tab PO SCH (23:50)
[2020-09-18] MEDS: HYDROmorphone 1 MG/ML Syringe IVPUSH PRN ×3 (00:46→11:20)
[2020-09-18] MEDS: Acetaminophen 325 MG Tab PO SCH ×2 (04:48→12:49)
[2020-09-18] MEDS: Sucralfate 1 GM Tab PO SCH ×3 (04:48→12:48)
[2020-09-18] MEDS: Lactated Ringers 1,000 ML IV SCH (04:51)
[2020-09-18] MEDS ORDERED: Pantoprazole 40 MG Vial IVPUSH SCH (09:00)
[2020-09-18] MEDS ORDERED: Lidocaine 1% 4 ML ONE (11:38)
[2020-09-18] MEDS ORDERED: fentaNYL 100 MCG/2 ML SDV ONE (11:38)
[2020-09-18] MEDS ORDERED: Propofol 200 MG/20 ML SDV ONE ×3 (11:38→12:06)
--- NOTE | 2020-09-18 12:13 | PCM.PREANE ---
Preanesthetic Assessment - Procedure Proposed Procedure: EGD - Anesthesia/Transfusion/Family Hx Anesthesia History: Prior Anesthesia Without Reaction Family History of Anesthesia Reaction: No Transfusion History: No Prior Transfusion(s) - Review of Systems General: No Symptoms Pulmonary: No Symptoms Cardiovascular: No Symptoms Gastrointestinal: Abdominal Pain Neurological: No Symptoms Other: Reports: None - Physical Assessment NPO Status Date: 09/18/20 (greater than 8 hours) Vital Signs: Last Vital Signs Temp 36.7 C 09/18/20 07:16 Pulse 57 L 09/18/20 07:16 Resp 16 09/18/20 07:16 BP 129/78 09/18/20 07:16 Pulse Ox 96 09/18/20 07:16 Height: 5 ft 7 in Weight: 105.732 kg ASA Class: 2 Mental Status: Alert & Oriented x3 Airway Class: Mallampati = 2 Dentition: Reports: Normal Dentition ROM/Head Extension: Full Lungs: Clear to Auscultation, Normal Respiratory Effort Cardiovascular: Regular Rate, Regular Rhythm - Lab Values: Laboratory Last Values WBC 9.50 K/mm3 (4.23-9.07) H 09/18/20 04:16 RBC 4.94 M/mm3 (4.63-6.08) 09/18/20 04:16 Hgb 14.4 gm/dl (13.7-17.5) D 09/18/20 04:16 Hct 42.6 % (40.1-51.0) 09/18/20 04:16 MCV 86.2 fl (79.0-92.2) 09/18/20 04:16 MCH 29.1 pg (25.7-32.2) 09/18/20 04:16 MCHC 33.8 g/dl (32.2-35.5) 09/18/20 04:16 RDW Std Deviation 43.3 fL (35.1-43.9) 09/18/20 04:16 Plt Count 317 K/mm3 (163-337) 09/18/20 04:16 MPV 9.9 fl (9.4-12.3) 09/18/20 04:16 Neut % (Auto) 58.8 % (34.0-67.9) 09/18/20 04:16 Lymph % (Auto) 29.1 % (21.8-53.1) 09/18/20 04:16 [place] % (Auto) 9.4 % (5.3-12.2) 09/18/20 04:16 Eos % (Auto) 2.2 (0.8-7.0) 09/18/20 04:16 Baso % (Auto) 0.3 % (0.1-1.2) 09/18/20 04:16 Neut # (Auto) 5.59 K/mm3 (1.78-5.38) H 09/18/20 04:16 Lymph # (Auto) 2.76 K/mm3 (1.32-3.57) 09/18/20 04:16 [place] # (Auto) 0.89 K/mm3 (0.30-0.82) H 09/18/20 04:16 Eos # (Auto) 0.21 K/mm3 (0.04-0.54) 09/18/20 04:16 Baso # (Auto) 0.03 K/mm3 (0.01-0.08) 09/18/20 04:16 Neutrophils % (Manual) 74 % (40-60) H 09/17/20 16:45 Band Neutrophils % 0 % (0-10) 09/17/20 16:45 Lymphocytes % (Manual) 19 % (20-40) L 09/17/20 16:45 Atypical Lymphs % 0 % 09/17/20 16:45 Monocytes % (Manual) 6 % (2-10) 09/17/20 16:45 Eosinophils % (Manual) 1 % (0.8-7.0) 09/17/20 16:45 Basophils % (Manual) 0 (0.2-1.2) L 09/17/20 16:45 Platelet Estimate Adequate 09/17/20 16:45 RBC Morph Comment Normal 09/17/20 16:45 Sodium 140 mEq/L (136-145) 09/18/20 04:16 Potassium 3.6 mEq/L (3.5-5.1) 09/18/20 04:16 Chloride 104 mEq/L (98-107) 09/18/20 04:16 Carbon Dioxide 27 mEq/L (21-32) 09/18/20 04:16 Anion Gap 12.6 (5-15) 09/18/20 04:16 BUN 18 mg/dL (7-18) 09/18/20 04:16 Creatinine 0.8 mg/dL (0.7-1.3) 09/18/20 04:16 Est Cr Clr Drug Dosing 100.99 mL/min 09/18/20 04:16 Estimated GFR (MDRD) > 60 mL/min (>60) 09/18/20 04:16 BUN/Creatinine Ratio 22.5 (14-18) H 09/18/20 04:16 Glucose 99 mg/dL (74-106) 09/18/20 04:16 Calcium 8.4 mg/dL (8.5-10.1) L D 09/18/20 04:16 Total Bilirubin 0.5 mg/dL (0.2-1.0) 09/17/20 16:45 AST 19 U/L (15-37) 09/17/20 16:45 ALT 48 U/L (16-63) 09/17/20 16:45 Alkaline Phosphatase 92 U/L (46-116) 09/17/20 16:45 CK-MB (CK-2) 1.6 ng/ml (0-3.6) 09/17/20 16:45 Troponin I < 0.017 ng/mL (0.00-0.056) 09/17/20 16:45 Total Protein 9.0 g/dl (6.4-8.2) H 09/17/20 16:45 Albumin 4.5 g/dl (3.4-5.0) 09/17/20 16:45 Globulin 4.5 gm/dL 09/17/20 16:45 Albumin/Globulin Ratio 1.0 (1-2) 09/17/20 16:45 Lipase 63 U/L (73-393) L 09/17/20 16:45 Urine Color Yellow (Yellow) 09/17/20 18:50 Urine Appearance Clear (Clear) 09/17/20 18:50 Urine pH 7.0 (5.0-8.0) 09/17/20 18:50 Ur Specific [place] 1.020 (1.005-1.030) 09/17/20 18:50 Urine Protein Negative (Negative) 09/17/20 18:50 Urine Glucose (UA) Negative (Negative) 09/17/20 18:50 Urine Ketones Negative (Negative) 09/17/20 18:50 Urine Occult Blood Negative (Negative) 09/17/20 18:50 Urine Nitrite Negative (Negative) 09/17/20 18:50 Urine Bilirubin Negative (Negative) 09/17/20 18:50 Urine Urobilinogen 0.2 (0.2-1.0) 09/17/20 18:50 Ur Leukocyte Esterase Negative (Negative) 09/17/20 18:50 Urine RBC 0-5 /hpf (0-5) 09/17/20 18:50 Urine WBC 0-5 /hpf (0-5) 09/17/20 18:50 Ur Squamous Epith Cells 0-5 /hpf (0-5) 09/17/20 18:50 Urine Bacteria Few /hpf (FEW) 09/17/20 18:50 Urine Mucus Few /hpf (FEW) 09/17/20 18:50 SARS-CoV-2 RNA (DEBORAH) Negative (NEGATIVE) 09/17/20 20:25 - Allergies Allergies/Adverse Reactions: Allergies Allergy/AdvReac Type Severity Reaction Status Date / Time codeine Allergy Severe Shortness Verified 09/17/20 23:13 of Breath cephalexin monohydrate Allergy Hives Verified 09/17/20 23:13 [From Keflex] droperidol [From Inapsine] Allergy Anxiety Verified 09/17/20 23:13 - Anesthesia Plan Pre-Op Medication Ordered: Antacids - Acknowledgements Anesthesia Type Planned: MAC Pt an Appropriate Candidate for the Planned Anesthesia: Yes Alternatives and Risks of Anesthesia Discussed w Pt/Guardian: Yes Pt/Guardian Understands and Agrees with Anesthesia Plan: Yes PreAnesthesia Questionnaire - Past Health History Medical/Surgical History: Denies Medical/Surgical History HEENT History: Reports: Other (See Below) Other HEENT History: wears glasses Gastrointestinal History: Reports: Irritable Bowel Syndrome Musculoskeletal History: Reports: Back Pain, Chronic Other Musculoskeletal History: Herniated L4, L5, S1 Neurological History: Reports: Migraines Psychiatric History: Reports: Anxiety, Panic Attack Endocrine/Metabolic History: Reports: Obesity/BMI 30+ - Infectious Disease History Infectious Disease History: Reports: Chicken Pox, Influenza, Shingles - Past Surgical History HEENT Surgical History: Reports: Tonsillectomy GI Surgical History: Reports: Hernia, Abdominal Other GI Surgeries/Procedures: hernia repair as infant Male Surgical History: Reports: Circumcision Endocrine Surgical History: Reports: None Neurological Surgical History: Reports: Other (See Below) Other Neurological Surgeries/Procedures: back pain with ruptured disc L4-5 and S1 Musculoskeletal Surgical History: Reports: Shoulder Surgery, Other (See Below) - SUBSTANCE USE Tobacco Use Status *Q: Former Tobacco User Tobacco Use Within Last Twelve Months: Cigarettes Second Hand Smoke Exposure: No Recreational Drug Use History: No Recreational Drug Type: Reports: Other (see below) - HOME MEDS Home Medications: Home Meds Buprenorphine HCl/Naloxone HCl [Suboxone 4 mg-1 mg Sl Film] 1 tab PO DAILY 09/17/20 [History] - CURRENT (IN HOUSE) MEDS Current Meds: Current Medications Acetaminophen (Tylenol) 975 mg PO Q8H [facility] Last Admin: 09/18/20 04:48 Dose: 975 mg Documented by: Hydromorphone HCl (Dilaudid) 1 mg IVPUSH Q3H PRN PRN Reason: Pain Last Admin: 09/18/20 11:20 Dose: 1 mg Documented by: Sodium Chloride (Normal Saline) 1,000 mls @ 999 mls/hr IV ASDIRECTED [facility] Last Admin: 09/17/20 17:27 Dose: 999 mls/hr Documented by: Lactated Ringer's (Ringers, Lactated) 1,000 mls @ 100 mls/hr IV ASDIRECTED [facility] Last Admin: 09/18/20 04:51 Dose: 100 mls/hr Documented by: Pantoprazole Sodium (Protonix Iv) 40 mg IVPUSH Q12H [facility] Last Admin: 09/18/20 08:19 Dose: 40 mg Documented by: Sucralfate (Carafate) 1 gm PO QIDACANDBED [facility] Last Admin: 09/18/20 08:11 Dose: Not Given Documented by: Discontinued Medications Diatrizoate Meglum/Diatrizoate Sod (Gastrografin 37%) 90 ml PO ONETIME ONE Stop: 09/17/20 18:10 Last Admin: 09/17/20 18:45 Dose: 90 ml Documented by: Fentanyl (Sublimaze) Confirm Administered Dose 100 mcg .ROUTE .STK-MED ONE Stop: 09/18/20 11:39 Hydromorphone HCl (Dilaudid) 1 mg IVPUSH ONETIME STA Stop: 09/17/20 16:56 Last Admin: 09/17/20 17:27 Dose: 1 mg Documented by: Pantoprazole Sodium 40 mg/ (Sodium Chloride) 100 mls @ 200 mls/hr IV BID [facility] Last Admin: 09/17/20 22:04 Dose: Not Given Documented by: Pantoprazole Sodium 40 mg/ (Sodium Chloride) 100 mls @ 200 mls/hr IV ONETIME ONE Stop: 09/18/20 00:14 Last Admin: 09/17/20 23:51 Dose: 200 mls/hr Documented by: Lidocaine HCl (Xylocaine-Mpf 1%) Confirm Administered Dose 4 mls @ as directed .ROUTE .STK-MED ONE Stop: 09/18/20 11:39 Iopamidol (Isovue-300 (61%)) 100 ml IVPUSH ONETIME ONE Stop: 09/17/20 18:10 Last Admin: 09/17/20 18:45 Dose: 100 ml Documented by: Ondansetron HCl (Zofran) 4 mg IVPUSH ONETIME ONE Stop: 09/17/20 16:56 Last Admin: 09/17/20 17:28 Dose: 4 mg Documented by: Pantoprazole Sodium (Protonix Iv) 40 mg IVPUSH ONETIME ONE Stop: 09/17/20 20:09 Last Admin: 09/17/20 20:59 Dose: 40 mg Documented by: Propofol (Diprivan 20 Ml) Confirm Administered Dose 200 mg .ROUTE .STK-MED ONE Stop: 09/18/20 11:39 Propofol (Diprivan 20 Ml) Confirm Administered Dose 200 mg .ROUTE .STK-MED ONE Stop: 09/18/20 11:56 Propofol (Diprivan 20 Ml) Confirm Administered Dose 200 mg .ROUTE .STK-MED ONE Stop: 09/18/20 12:07
--- NOTE | 2020-09-18 12:16 | PCM.PRNOTE ---
- Free Text/Narrative Note: Date: 09/18/2020 Procedure: diagnostic esophagogastroduodenoscopy Indication: epigastric pain, history of peptic ulcer disease Endoscopist: Marcelo Edmond MD Findings: Some gross evidence of gastritis without discrete ulceration. Otherwise normal appearing duodenum, stomach and distal esophagus. In the proximal esophagus there was a verrucous lesion that was nearly entirely removed with forceps. Detailed Report: The patient was taken to the endoscopy suite and placed in left lateral decubitus position. Time out was performed and monitored sedation initiated. A bite block was placed. The endoscope was inserted orally and advanced to the second portion of the duodenum with ease. The duodenal mucosa appeared normal. A biopsy with cold forceps was obtained. The stomach appeared the have some mild patchy inflammatory changes without any identifiable discrete ulcers. A sample of the gastric antral mucosa was obtained. A sample from the gastric body was also obtained. On retroflexion within the stomach, there was no hiatal hernia. The Z line appeared normal. A biopsy of distal esophageal mucosa was obtained. A few centimeters inferior to the larynx, there was a verrucous lesion of the esophagus that came off nearly entirely and very easily with the forceps. Air was suctioned from the stomach prior to removal of the scope. The patient tolerated the procedure well.
--- NOTE | 2020-09-18 12:31 | PCM48HPAN ---
Post Anesthesia Note - EVALUATION WITHIN 48HRS OF ANESTHETIC Vital Signs in Normal Range: Yes Patient Participated in Evaluation: Yes Respiratory Function Stable: Yes Airway Patent: Yes Cardiovascular Function Stable: Yes Hydration Status Stable: Yes Pain Control Satisfactory: Yes Nausea and Vomiting Control Satisfactory: Yes Mental Status Recovered: Yes Vital Signs: Last Vital Signs Temp 36.7 C 09/18/20 07:16 Pulse 57 L 09/18/20 07:16 Resp 16 09/18/20 07:16 BP 129/78 09/18/20 07:16 Pulse Ox 96 09/18/20 07:16 - COMMENTS/OBSERVATIONS Free Text/Narrative:: Routine recovery. Handoff to ACN RN. VSS, SV, BROWN, FAC, CTAB. SpO2 > 90%. Sleeping in LLD.
[2020-09-18] MEDS ORDERED: Buprenorphine/Naloxone 8-2 MG Tab.SL SL SCH (12:45)
[2020-09-18] MEDS ORDERED: Simethicone 80 MG Tab.Chew PO PRN (14:37)
[2020-09-18 14:44] VITALS: BP 133/98; PULSE 62
--- NOTE | 2020-09-18 15:01 | PCM.DCSUM1 ---
Discharge Summary - Hospital Course Free Text/Narrative:: Presented with acute severe epigastric pain, with history most suggestive of peptic ulcer disease. CT scan was fairly unremarkable, but report raised toquestions of ileus vs partial SBO. The patient had no nausea, vomiting, distention or obstipation. He was placed on PPI therapy and sucralfate, and symptoms improved. WBC the morning after admission was normal. EGD was performed with some findings of gastric inflammation but no obvious ulcer or other pathology. He felt pretty good after EGD and was able to tolerate a regular diet. He was deemed fit for discharge to home the afternoon of hospital day 2. Diagnosis: Stroke: No - Discharge Data Discharge Date: 09/18/20 Discharge Disposition: Home, Self-Care 01 Condition: Good - Referral to Home Health Primary Care Physician: PCP None - Patient Summary/Data Operative Procedure(s) Performed: esophagogastroduodenoscopy Consults: Consultations 09/17/20 19:25 Consult to Physician [CONS] Stat - Patient Instructions Diet: Usual Diet as Tolerated Activity: As Tolerated Driving: May Drive Today Showering/Bathing: May Shower Notify Provider of: Fever, Increased Pain, Nausea and/or Vomiting - Discharge Plan *PRESCRIPTION DRUG MONITORING PROGRAM REVIEWED*: No *COPY OF PRESCRIPTION DRUG MONITORING REPORT IN PATIENT MANDO: No Prescriptions/Med Rec: Pantoprazole Sodium [Protonix] 20 mg PO DAILY #30 tablet. Home Medications: Home Meds Buprenorphine HCl/Naloxone HCl [Suboxone 4 mg-1 mg Sl Film] 2 mg PO Q6HR 09/17/20 [History] Pantoprazole Sodium [Protonix] 20 mg PO DAILY #30 tablet. 09/18/20 [Rx] Oxygen Therapy Mode: Room Air Forms: ED Department Discharge Referrals: PCP,None [Primary Care Provider] - - Discharge Summary/Plan Comment DC Time >30 min.: No - Patient Data Vitals - Most Recent: Last Vital Signs Temp 36.4 C 09/18/20 12:25 Pulse 62 09/18/20 14:32 Resp 16 09/18/20 07:16 BP 133/98 H 09/18/20 14:32 Pulse Ox 100 09/18/20 14:32 Weight - Most Recent: 105.732 kg I&O - Last 24 hours: Intake & Output 09/17/20 09/18/20 09/18/20 22:59 06:59 14:59 Intake Total 760 Output Total 450 Balance 310 Lab Results - Last 24 hrs: Laboratory Results - last 24 hr 09/17/20 09/17/20 09/17/20 Range/Units 16:45 16:45 16:45 WBC 14.54 H (4.23-9.07) K/mm3 RBC 5.75 (4.63-6.08) M/mm3 Hgb 17.0 (13.7-17.5) gm/dl Hct 48.0 (40.1-51.0) % MCV 83.5 D (79.0-92.2) fl MCH 29.6 (25.7-32.2) pg MCHC 35.4 (32.2-35.5) g/dl RDW Std Deviation 41.6 (35.1-43.9) fL Plt Count 391 H D (163-337) K/mm3 MPV 9.9 (9.4-12.3) fl Neut % (Auto) (34.0-67.9) % Lymph % (Auto) (21.8-53.1) % [place] % (Auto) (5.3-12.2) % Eos % (Auto) (0.8-7.0) Baso % (Auto) (0.1-1.2) % Neut # (Auto) (1.78-5.38) K/mm3 Lymph # (Auto) (1.32-3.57) K/mm3 [place] # (Auto) (0.30-0.82) K/mm3 Eos # (Auto) (0.04-0.54) K/mm3 Baso # (Auto) (0.01-0.08) K/mm3 Neutrophils % (Manual) 74 H (40-60) % Band Neutrophils % 0 (0-10) % Lymphocytes % (Manual) 19 L (20-40) % Atypical Lymphs % 0 % Monocytes % (Manual) 6 (2-10) % Eosinophils % (Manual) 1 (0.8-7.0) % Basophils % (Manual) 0 L (0.2-1.2) Platelet Estimate Adequate RBC Morph Comment Normal Sodium 139 (136-145) mEq/L Potassium 3.8 (3.5-5.1) mEq/L Chloride 102 (98-107) mEq/L Carbon Dioxide 26 (21-32) mEq/L Anion Gap 14.8 (5-15) BUN 24 H (7-18) mg/dL Creatinine 1.0 (0.7-1.3) mg/dL Est Cr Clr Drug Dosing 80.79 mL/min Estimated GFR (MDRD) > 60 (>60) mL/min BUN/Creatinine Ratio 24.0 H (14-18) Glucose 144 H (74-106) mg/dL Calcium 10.0 (8.5-10.1) mg/dL Total Bilirubin 0.5 (0.2-1.0) mg/dL AST 19 (15-37) U/L ALT 48 (16-63) U/L Alkaline Phosphatase 92 (46-116) U/L CK-MB (CK-2) 1.6 (0-3.6) ng/ml Troponin I < 0.017 (0.00-0.056) ng/mL Total Protein 9.0 H (6.4-8.2) g/dl Albumin 4.5 (3.4-5.0) g/dl Globulin 4.5 gm/dL Albumin/Globulin Ratio 1.0 (1-2) Lipase 63 L (73-393) U/L Urine Color (Yellow) Urine Appearance (Clear) Urine pH (5.0-8.0) Ur Specific [place] (1.005-1.030) Urine Protein (Negative) Urine Glucose (UA) (Negative) Urine Ketones (Negative) Urine Occult Blood (Negative) Urine Nitrite (Negative) Urine Bilirubin (Negative) Urine Urobilinogen (0.2-1.0) Ur Leukocyte Esterase (Negative) Urine RBC (0-5) /hpf Urine WBC (0-5) /hpf Ur Squamous Epith Cells (0-5) /hpf Urine Bacteria (FEW) /hpf Urine Mucus (FEW) /hpf SARS-CoV-2 RNA (DEBORAH) (NEGATIVE) 09/17/20 09/17/20 09/18/20 Range/Units 18:50 20:25 04:16 WBC 9.50 H (4.23-9.07) K/mm3 RBC 4.94 (4.63-6.08) M/mm3 Hgb 14.4 D (13.7-17.5) gm/dl Hct 42.6 (40.1-51.0) % MCV 86.2 (79.0-92.2) fl MCH 29.1 (25.7-32.2) pg MCHC 33.8 (32.2-35.5) g/dl RDW Std Deviation 43.3 (35.1-43.9) fL Plt Count 317 (163-337) K/mm3 MPV 9.9 (9.4-12.3) fl Neut % (Auto) 58.8 (34.0-67.9) % Lymph % (Auto) 29.1 (21.8-53.1) % [place] % (Auto) 9.4 (5.3-12.2) % Eos % (Auto) 2.2 (0.8-7.0) Baso % (Auto) 0.3 (0.1-1.2) % Neut # (Auto) 5.59 H (1.78-5.38) K/mm3 Lymph # (Auto) 2.76 (1.32-3.57) K/mm3 [place] # (Auto) 0.89 H (0.30-0.82) K/mm3 Eos # (Auto) 0.21 (0.04-0.54) K/mm3 Baso # (Auto) 0.03 (0.01-0.08) K/mm3 Neutrophils % (Manual) (40-60) % Band Neutrophils % (0-10) % Lymphocytes % (Manual) (20-40) % Atypical Lymphs % % Monocytes % (Manual) (2-10) % Eosinophils % (Manual) (0.8-7.0) % Basophils % (Manual) (0.2-1.2) Platelet Estimate RBC Morph Comment Sodium (136-145) mEq/L Potassium (3.5-5.1) mEq/L Chloride (98-107) mEq/L Carbon Dioxide (21-32) mEq/L Anion Gap (5-15) BUN (7-18) mg/dL Creatinine (0.7-1.3) mg/dL Est Cr Clr Drug Dosing mL/min Estimated GFR (MDRD) (>60) mL/min BUN/Creatinine Ratio (14-18) Glucose (74-106) mg/dL Calcium (8.5-10.1) mg/dL Total Bilirubin (0.2-1.0) mg/dL AST (15-37) U/L ALT (16-63) U/L Alkaline Phosphatase (46-116) U/L CK-MB (CK-2) (0-3.6) ng/ml Troponin I (0.00-0.056) ng/mL Total Protein (6.4-8.2) g/dl Albumin (3.4-5.0) g/dl Globulin gm/dL Albumin/Globulin Ratio (1-2) Lipase (73-393) U/L Urine Color Yellow (Yellow) Urine Appearance Clear (Clear) Urine pH 7.0 (5.0-8.0) Ur Specific [place] 1.020 (1.005-1.030) Urine Protein Negative (Negative) Urine Glucose (UA) Negative (Negative) Urine Ketones Negative (Negative) Urine Occult Blood Negative (Negative) Urine Nitrite Negative (Negative) Urine Bilirubin Negative (Negative) Urine Urobilinogen 0.2 (0.2-1.0) Ur Leukocyte Esterase Negative (Negative) Urine RBC 0-5 (0-5) /hpf Urine WBC 0-5 (0-5) /hpf Ur Squamous Epith Cells 0-5 (0-5) /hpf Urine Bacteria Few (FEW) /hpf Urine Mucus Few (FEW) /hpf SARS-CoV-2 RNA (DEBORAH) Negative (NEGATIVE) 09/18/20 Range/Units 04:16 WBC (4.23-9.07) K/mm3 RBC (4.63-6.08) M/mm3 Hgb (13.7-17.5) gm/dl Hct (40.1-51.0) % MCV (79.0-92.2) fl MCH (25.7-32.2) pg MCHC (32.2-35.5) g/dl RDW Std Deviation (35.1-43.9) fL Plt Count (163-337) K/mm3 MPV (9.4-12.3) fl Neut % (Auto) (34.0-67.9) % Lymph % (Auto) (21.8-53.1) % [place] % (Auto) (5.3-12.2) % Eos % (Auto) (0.8-7.0) Baso % (Auto) (0.1-1.2) % Neut # (Auto) (1.78-5.38) K/mm3 Lymph # (Auto) (1.32-3.57) K/mm3 [place] # (Auto) (0.30-0.82) K/mm3 Eos # (Auto) (0.04-0.54) K/mm3 Baso # (Auto) (0.01-0.08) K/mm3 Neutrophils % (Manual) (40-60) % Band Neutrophils % (0-10) % Lymphocytes % (Manual) (20-40) % Atypical Lymphs % % Monocytes % (Manual) (2-10) % Eosinophils % (Manual) (0.8-7.0) % Basophils % (Manual) (0.2-1.2) Platelet Estimate RBC Morph Comment Sodium 140 (136-145) mEq/L Potassium 3.6 (3.5-5.1) mEq/L Chloride 104 (98-107) mEq/L Carbon Dioxide 27 (21-32) mEq/L Anion Gap 12.6 (5-15) BUN 18 (7-18) mg/dL Creatinine 0.8 (0.7-1.3) mg/dL Est Cr Clr Drug Dosing 100.99 mL/min Estimated GFR (MDRD) > 60 (>60) mL/min BUN/Creatinine Ratio 22.5 H (14-18) Glucose 99 (74-106) mg/dL Calcium 8.4 L D (8.5-10.1) mg/dL Total Bilirubin (0.2-1.0) mg/dL AST (15-37) U/L ALT (16-63) U/L Alkaline Phosphatase (46-116) U/L CK-MB (CK-2) (0-3.6) ng/ml Troponin I (0.00-0.056) ng/mL Total Protein (6.4-8.2) g/dl Albumin (3.4-5.0) g/dl Globulin gm/dL Albumin/Globulin Ratio (1-2) Lipase (73-393) U/L Urine Color (Yellow) Urine Appearance (Clear) Urine pH (5.0-8.0) Ur Specific [place] (1.005-1.030) Urine Protein (Negative) Urine Glucose (UA) (Negative) Urine Ketones (Negative) Urine Occult Blood (Negative) Urine Nitrite (Negative) Urine Bilirubin (Negative) Urine Urobilinogen (0.2-1.0) Ur Leukocyte Esterase (Negative) Urine RBC (0-5) /hpf Urine WBC (0-5) /hpf Ur Squamous Epith Cells (0-5) /hpf Urine Bacteria (FEW) /hpf Urine Mucus (FEW) /hpf SARS-CoV-2 RNA (DEBORAH) (NEGATIVE) Med Orders - Current: Current Medications Acetaminophen (Tylenol) 975 mg PO Q8H COUNTS INCLUDE 234 BEDS AT THE [facility] Last Admin: 09/18/20 12:49 Dose: Not Given Documented by: Buprenorphine/Naloxone (Buprenorphine-Naloxone 8 Mg-2 Mg) 0.25 tab SL Q6HR COUNTS INCLUDE 234 BEDS AT THE [facility] Last Admin: 09/18/20 14:41 Dose: Not Given Documented by: Hydromorphone HCl (Dilaudid) 1 mg IVPUSH Q3H PRN PRN Reason: Pain Last Admin: 09/18/20 11:20 Dose: 1 mg Documented by: Sodium Chloride (Normal Saline) 1,000 mls @ 999 mls/hr IV ASDIRECTED COUNTS INCLUDE 234 BEDS AT THE [facility] Last Admin: 09/17/20 17:27 Dose: 999 mls/hr Documented by: Pantoprazole Sodium (Protonix Iv) 40 mg IVPUSH Q12H COUNTS INCLUDE 234 BEDS AT THE [facility] Last Admin: 09/18/20 08:19 Dose: 40 mg Documented by: Simethicone (Simethicone) 80 mg PO Q4H PRN PRN Reason: Gas Last Admin: 09/18/20 14:48 Dose: 80 mg Documented by: Sucralfate (Carafate) 1 gm PO QIDACANDBED COUNTS INCLUDE 234 BEDS AT THE [facility] Last Admin: 09/18/20 12:48 Dose: 1 gm Documented by: Discontinued Medications Diatrizoate Meglum/Diatrizoate Sod (Gastrografin 37%) 90 ml PO ONETIME ONE Stop: 09/17/20 18:10 Last Admin: 09/17/20 18:45 Dose: 90 ml Documented by: Fentanyl (Sublimaze) Confirm Administered Dose 100 mcg .ROUTE .STK-MED ONE Stop: 09/18/20 11:39 Hydromorphone HCl (Dilaudid) 1 mg IVPUSH ONETIME STA Stop: 09/17/20 16:56 Last Admin: 09/17/20 17:27 Dose: 1 mg Documented by: Lactated Ringer's (Ringers, Lactated) 1,000 mls @ 100 mls/hr IV ASDIRECTED COUNTS INCLUDE 234 BEDS AT THE [facility] Last Admin: 09/18/20 04:51 Dose: 100 mls/hr Documented by: Pantoprazole Sodium 40 mg/ (Sodium Chloride) 100 mls @ 200 mls/hr IV BID COUNTS INCLUDE 234 BEDS AT THE [facility] Last Admin: 09/17/20 22:04 Dose: Not Given Documented by: Pantoprazole Sodium 40 mg/ (Sodium Chloride) 100 mls @ 200 mls/hr IV ONETIME ONE Stop: 09/18/20 00:14 Last Admin: 09/17/20 23:51 Dose: 200 mls/hr Documented by: Lidocaine HCl (Xylocaine-Mpf 1%) Confirm Administered Dose 4 mls @ as directed .ROUTE .STK-MED ONE Stop: 09/18/20 11:39 Iopamidol (Isovue-300 (61%)) 100 ml IVPUSH ONETIME ONE Stop: 09/17/20 18:10 Last Admin: 09/17/20 18:45 Dose: 100 ml Documented by: Ondansetron HCl (Zofran) 4 mg IVPUSH ONETIME ONE Stop: 09/17/20 16:56 Last Admin: 09/17/20 17:28 Dose: 4 mg Documented by: Pantoprazole Sodium (Protonix Iv) 40 mg IVPUSH ONETIME ONE Stop: 09/17/20 20:09 Last Admin: 09/17/20 20:59 Dose: 40 mg Documented by: Propofol (Diprivan 20 Ml) Confirm Administered Dose 200 mg .ROUTE .STK-MED ONE Stop: 09/18/20 11:39 Propofol (Diprivan 20 Ml) Confirm Administered Dose 200 mg .ROUTE .STK-MED ONE Stop: 09/18/20 11:56 Propofol (Diprivan 20 Ml) Confirm Administered Dose 200 mg .ROUTE .STK-MED ONE Stop: 09/18/20 12:07
--- NOTE | 2020-09-20 10:35 | CT ---
"PROCEDURE INFORMATION: Exam: CT Abdomen And Pelvis With Contrast Exam date and time: 09/17/2020 6:29 PM Age: 54 years old Clinical indication: Patient HX: Epigastric abdominal pain TECHNIQUE: Imaging protocol: Computed tomography of the abdomen and pelvis with intravenous contrast. Radiation optimization: All CT scans at this facility use at least one of these dose optimization techniques: automated exposure control; mA and/or kV adjustment per patient size (includes targeted exams where dose is matched to clinical indication); or iterative reconstruction. Other contrast: Oral; COMPARISON: No relevant prior studies available. FINDINGS: Liver: Normal. No mass. Gallbladder and bile ducts: Normal. No calcified stones. No ductal dilation. Pancreas: Normal. No ductal dilation. Spleen: Normal. No splenomegaly. Adrenal glands: Normal. No mass. Kidneys and ureters: Normal. No hydronephrosis. Stomach and bowel: Multiple loops of dilated fluid-filled small bowel may represent obstruction or ileus. More distally small bowel tapers. Appendix: Normal appendix Intraperitoneal space: Minimal free fluid in the pelvis Vasculature: Unremarkable. No abdominal aortic aneurysm. Lymph nodes: Unremarkable. No enlarged lymph nodes. Urinary bladder: Unremarkable as visualized. Reproductive: Unremarkable as visualized. Bones/joints: Unremarkable. No acute fracture. Soft tissues: Unremarkable. SHAQ DIEGO | Final Radiology Report CONFIDENTIALITY STATEMENT This report is intended only for use by the referring physician, and only in accordance with law. If you received this in error, call [phone]. Page 2 of 2 IMPRESSION: Multiple loops of dilated fluid-filled small bowel may represent obstruction or ileus. More distally small bowel tapers. Thank you for allowing us to participate in the care of your patient. Dictated and Authenticated by: Aram Ennis MD 09/17/2020 8:11 PM Central Time ([place] & [place]) LEV"
== END 2020-09-18 16:37 | disposition home or self-care (01) ==
LOC: JD.ED 16:34 → JD.MS 20:12 → UNDOADMOB 20:12
PROVIDERS: ADMIT Surgery; ATTEND Surgery
DX: K29.50 Unspecified chronic gastritis without bleeding (principal); K31.89 Other diseases of stomach and duodenum; I78.1 Nevus, non-neoplastic; K29.80 Duodenitis without bleeding; K25.9 Gastric ulcer, unspecified as acute or chronic, without hemorrhage or perforation; E66.9 Obesity, unspecified; F41.9 Anxiety disorder, unspecified; Z79.899 Other long term (current) drug therapy; Z88.5 Allergy status to narcotic agent; Z88.8 Allergy status to other drugs, medicaments and biological substances; Z98.890 Other specified postprocedural states; Z87.11 Personal history of peptic ulcer disease; Z87.891 Personal history of nicotine dependence; Z01.812 Encounter for preprocedural laboratory examination; Z20.828 Contact with and (suspected) exposure to other viral communicable diseases; Z68.36 Body mass index [BMI] 36.0-36.9, adult
CPT/HCPCS: 36415; 43239; 74177; 80048; 80053; 81001; 82553; 83690; 84484; 85007; 85025; 85027; 87635; 93005; A9270; C9113; J1170; J2001; J2405; J2704; J3010; J7030; J7120; Q9963; Q9967; 00731; 99284; U0002

== ENCOUNTER 2020-10-12 01:01 | Emergency (ER) | payer OTHER ==
[2020-10-12 01:14] VITALS: BP 151/72; PULSE 76
[2020-10-12] MEDS ORDERED: HYDROmorphone 0.5 MG/0.5 ML Syringe IVPUSH ONE (01:32)
[2020-10-12] MEDS ORDERED: Sodium Chloride 0.9% 10 ML Syringe FLUSH PRN (01:32)
[2020-10-12] MEDS ORDERED: Famotidine 20 MG/2 ML SDV IVPUSH ONE (01:32)
[2020-10-12] MEDS ORDERED: Ondansetron 4 MG/2 ML SDV IVPUSH ONE (01:32)
[2020-10-12] MEDS ORDERED: Sodium Chloride 0.9% 1,000 ML IV SCH (01:45)
--- NOTE | 2020-10-12 01:59 | EDM.PDOC ---
<Epi Mcguire Steph - Last Filed: 10/12/20 06:55> ED HPI GENERAL MEDICAL PROBLEM - General Chief Complaint: Abdominal Pain Stated Complaint: ABDOMINAL PAIN Time Seen by Provider: 10/12/20 01:22 Source of Information: Reports: Patient, RN Notes Reviewed - History of Present Illness INITIAL COMMENTS - FREE TEXT/NARRATIVE: 54 Yr old male comes in with upper abd pain. This started a couple of hrs ago at home. He did have about a "pint of potato salad" about 1 hr prior to onset of discomfort. He has had this type of discomfort in the past, last episode about 1 month ago. He was scoped at that time, started on a medication for his stomach bid, he believes it starts with a p, likely protonix or prilosec. No nausea or vomiting. No fever or chills. He is wondering if it might be his GB. Pain does not radiate to his back. Upper Abdominal Pain Score (Numeric/FACES): 8 - Related Data Allergies Allergy/AdvReac Type Severity Reaction Status Date / Time codeine Allergy Severe Shortness Verified 10/12/20 01:09 of Breath cephalexin monohydrate Allergy Hives Verified 10/12/20 01:09 [From Keflex] droperidol [From Inapsine] Allergy Anxiety Verified 10/12/20 01:09 Home Meds: Home Meds Buprenorphine HCl/Naloxone HCl [Suboxone 4 mg-1 mg Sl Film] 2 mg PO Q6HR 09/17/20 [History] Pantoprazole Sodium [Protonix] 20 mg PO DAILY #30 tablet. 09/18/20 [Rx] Past Medical History - Past Health History Medical/Surgical History: Denies Medical/Surgical History HEENT History: Reports: Other (See Below) Other HEENT History: wears glasses Gastrointestinal History: Reports: Irritable Bowel Syndrome Musculoskeletal History: Reports: Back Pain, Chronic Other Musculoskeletal History: Herniated L4, L5, S1 Neurological History: Reports: Migraines Psychiatric History: Reports: Anxiety, Panic Attack Endocrine/Metabolic History: Reports: Obesity/BMI 30+ - Infectious Disease History Infectious Disease History: Reports: Chicken Pox, Influenza, Shingles - Past Surgical History HEENT Surgical History: Reports: Tonsillectomy Other HEENT Surgeries/Procedures: jaw surgery GI Surgical History: Reports: Hernia, Abdominal Other GI Surgeries/Procedures: hernia repair as Male Surgical History: Reports: Circumcision Endocrine Surgical History: Reports: None Neurological Surgical History: Reports: Other (See Below) Other Neurological Surgeries/Procedures: back pain with ruptured disc L4-5 and S1 Musculoskeletal Surgical History: Reports: Shoulder Surgery, Other (See Below) Other Musculoskeletal Surgeries/Procedures:: left achilles repair, left hand reconstruction, left shoulder arthroscopy Social & Family History - Family History Oncologic: Reports: Breast, Colon, Lung - Tobacco Use Tobacco Use Status *Q: Never Tobacco User - Caffeine Use Caffeine Use: Reports: None - Living Situation & Occupation Living situation: Reports: , with Spouse 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 Denies: Diarrhea, Nausea, Vomiting Musculoskeletal: Denies: Shoulder Pain, Arm Pain, Back Pain Skin: Reports: No Symptoms Neurological: Reports: No Symptoms ED EXAM, GI/ABD - Physical Exam Exam: See Below General Appearance: Alert, Moderate Distress Head: Atraumatic Neck: Supple Respiratory/Chest: No Respiratory Distress, Lungs Clear, Normal Breath Sounds Cardiovascular: Regular Rate, Rhythm GI/Abdominal Exam: Other (Tender upper mid abd and R upper abd, lower abd soft and nontedner). No: Guarding, Rebound Extremities: Normal Inspection, Normal Range of Motion Neurological: Alert, Oriented, No Motor/Sensory Deficits Skin Exam: Warm, Dry, Normal Color Course - Re-Assessments/Exams Free Text/Narrative Re-Assessment/Exam: 10/12/20 03:29 Labs have come back nl. He is still having some discomfort after 0.5 mg dilaudid IV but managing OK at this time. He is williing, would like to stay and get an US of his GB to see if that may be the cause of his recurrent discomfort. Will keep him in the ED for the 7 to 7:30 emergency slot. Departure - Departure Disposition: Home, Self-Care 01 Condition: Fair Clinical Impression: Abdominal pain Qualifiers: Abdominal location: upper abdomen, unspecified Qualified Code(s): R10.10 - Upper abdominal pain, unspecified - Discharge Information Referrals: PCP,None [Primary Care Provider] - Forms: ED Department Discharge Additional Instructions: Clear liquids and bland diet as tolerated. Avoid fatty food for now. Continue antacid medication twice daily. Return to ED as needed if symptoms worsening in any way. Follow-up with your regular healthcare provider or Dr. Edmond towards the end of this week. Discuss if a HIDA scan might be beneficial to help sort these episodes out. Sepsis Event Note (ED) - Evaluation Sepsis Screening Result: No Definite Risk <Jeyson Love - Last Filed: 10/12/20 10:19> Course - Vital Signs Last Recorded V/S: Last Vital Signs Temp 36.0 C L 10/12/20 01:10 Pulse 76 10/12/20 01:10 Resp 16 10/12/20 01:10 BP 151/72 H 10/12/20 01:10 Pulse Ox 97 10/12/20 01:10 - Orders/Labs/Meds Orders: Active Orders 24 hr Category Date Time Status Peripheral IV Care [RC] . DIRECTED Care 10/12/20 01:33 Active Sodium Chloride 0.9% [Normal Saline] 1,000 ml Med 10/12/20 01:45 Active IV ONETIME Sodium Chloride 0.9% [Saline Flush] Med 10/12/20 01:32 Active 10 ml FLUSH ASDIRECTED PRN Peripheral IV Insertion Adult [OM.PC] Stat Oth 10/12/20 01:32 Ordered Medication Orders Sodium Chloride (Normal Saline) 1,000 mls @ 999 mls/hr IV ONETIME LOVELY Last Admin: 10/12/20 01:46 Dose: 999 mls/hr Documented by: GAGAN Sodium Chloride (Saline Flush) 10 ml FLUSH ASDIRECTED PRN PRN Reason: Keep Vein Open Last Admin: 10/12/20 01:46 Dose: 10 ml Documented by: GAGAN Labs: Laboratory Tests 10/12/20 10/12/20 10/12/20 Range/Units 01:50 01:50 01:50 WBC 8.47 (4.23-9.07) K/mm3 RBC 5.24 (4.63-6.08) M/mm3 Hgb 15.3 (13.7-17.5) gm/dl Hct 44.7 (40.1-51.0) % MCV 85.3 (79.0-92.2) fl MCH 29.2 (25.7-32.2) pg MCHC 34.2 (32.2-35.5) g/dl RDW Std Deviation 41.4 (35.1-43.9) fL Plt Count 328 (163-337) K/mm3 MPV 10.0 (9.4-12.3) fl Neut % (Auto) 60.0 (34.0-67.9) % Lymph % (Auto) 26.6 (21.8-53.1) % [place] % (Auto) 8.6 (5.3-12.2) % Eos % (Auto) 3.9 (0.8-7.0) Baso % (Auto) 0.7 (0.1-1.2) % Neut # (Auto) 5.08 (1.78-5.38) K/mm3 Lymph # (Auto) 2.25 (1.32-3.57) K/mm3 [place] # (Auto) 0.73 (0.30-0.82) K/mm3 Eos # (Auto) 0.33 (0.04-0.54) K/mm3 Baso # (Auto) 0.06 (0.01-0.08) K/mm3 Sodium 142 (136-145) mEq/L Potassium 3.8 (3.5-5.1) mEq/L Chloride 104 (98-107) mEq/L Carbon Dioxide 28 (21-32) mEq/L Anion Gap 13.8 (5-15) BUN 19 H (7-18) mg/dL Creatinine 1.1 (0.7-1.3) mg/dL Est Cr Clr Drug Dosing 73.44 mL/min Estimated GFR (MDRD) > 60 (>60) mL/min BUN/Creatinine Ratio 17.3 (14-18) Glucose 126 H (74-106) mg/dL Calcium 9.2 (8.5-10.1) mg/dL Total Bilirubin 0.3 (0.2-1.0) mg/dL GGT 19 (15-85) U/L AST 15 (15-37) U/L ALT 35 (16-63) U/L Alkaline Phosphatase 87 (46-116) U/L C-Reactive Protein 0.9 (<1.0) mg/dL Total Protein 7.5 (6.4-8.2) g/dl Albumin 3.6 (3.4-5.0) g/dl Globulin 3.9 gm/dL Albumin/Globulin Ratio 0.9 L (1-2) Lipase 111 (73-393) U/L Meds: Medications Generic Name Dose Route Start Last Admin Trade Name Christiana PRN Reason Stop Dose Admin Sodium Chloride 1,000 mls @ 999 mls/hr 10/12/20 01:45 10/12/20 01:46 Normal Saline IV 999 mls/hr ONETIME LOVELY Administration Sodium Chloride 10 ml 10/12/20 01:32 10/12/20 01:46 Saline Flush FLUSH 10 ml ASDIRECTED PRN Administration Keep Vein Open Discontinued Medications Generic Name Dose Route Start Last Admin Trade Name Delq PRN Reason Stop Dose Admin Famotidine 20 mg 10/12/20 01:32 10/12/20 01:45 Pepcid IVPUSH 10/12/20 01:33 20 mg ONETIME ONE Administration Hydromorphone HCl 0.5 mg 10/12/20 01:32 10/12/20 01:46 Dilaudid IVPUSH 10/12/20 01:33 0.5 mg ONETIME ONE Administration Ondansetron HCl 4 mg 10/12/20 01:32 10/12/20 01:44 Zofran IVPUSH 10/12/20 01:33 4 mg ONETIME ONE Administration - Re-Assessments/Exams Free Text/Narrative Re-Assessment/Exam: 10/12/20 10:15 Point patient is doing well his pain is absolutely completely resolved. Abdominal exam shows active bowel sounds with no appreciable abdominal discomfort with palpation certainly no rigidity rebound. Gallbladder ultrasound appears to be less than perfect study with no evidence of cholelithiasis he may have some focal fatty sparing next to the gallbladder and the pancreas is poorly visualized. At this point the patient will be discharged is recommended he follow-up with either his regular provider or Dr. Edmond and consideration should be given to having a HIDA scan done. Departure - Departure Time of Disposition: 10:18 Sepsis Event Note (ED) - Focused Exam Vital Signs: Vital Signs Temp Pulse Resp BP Pulse Ox 10/12/20 01:10 36.0 C L 76 16 151/72 H 97
--- NOTE | 2020-10-12 08:38 | US ---
Limited abdominal ultrasound: Multiple real-time images of the gallbladder and kidney were obtained. Gallbladder shows no shadowing gallstones. No gallbladder wall thickening is seen. Minimal hypoechoic area next to the gallbladder is noted most likely representing mild fatty sparing. Common bile duct is not optimally seen but shows no definite area of dilatation. Pancreas is not well seen. Impression: 1. No definite cholelithiasis. 2. Probable focal fatty sparing next to the gallbladder. 3. Poorly seen pancreas. Diagnostic code #2
== END 2020-10-12 10:35 | disposition home or self-care (01) ==
LOC: JD.ED 01:01
DX: R10.11 Right upper quadrant pain (principal); E66.9 Obesity, unspecified; Z68.39 Body mass index [BMI] 39.0-39.9, adult; Z88.5 Allergy status to narcotic agent; Z88.8 Allergy status to other drugs, medicaments and biological substances; Z88.1 Allergy status to other antibiotic agents
CPT/HCPCS: 36415; 76705; 80053; 82977; 83690; 85025; 86140; 96374; 96375; 99284; J1170; J2405; J3490; J7030

== ENCOUNTER 2020-11-26 09:23 | Emergency (ER) | payer OTHER ==
[2020-11-26 09:43] VITALS: BP 128/85; PULSE 72
[2020-11-26] MEDS ORDERED: Sodium Chloride 0.9% 10 ML Syringe FLUSH PRN (09:53)
--- NOTE | 2020-11-26 10:07 | EDM.PDOC ---
ED HPI GENERAL MEDICAL PROBLEM - General Chief Complaint: Chest Pain Stated Complaint: CHEST PAIN Time Seen by Provider: 11/26/20 09:45 Source of Information: Reports: Patient History Limitations: Reports: No Limitations, Other (ED vital signs temp 98.2, pulse 72, respiratory rate 13, blood pressure 128/85, pulse ox 98% on room air) - History of Present Illness INITIAL COMMENTS - FREE TEXT/NARRATIVE: 55-year-old male presents to the emergency department with complaints of palpitations. Patient states he woke or was woken at 5:00 this morning feeling like his heart was going to beat out of his chest. Of note, he has previously been seen in the emergency department with similar complaints and was told to follow-up with his primary care physician Ximena Johnson. Patient states he woke this morning with the palpitations and he denies any shortness of breath, diaphoresis, chest pain, or dizziness associated with this. Patient states he quit consuming caffeine about 2 months ago and he does not smoke. He states he texted a friend who is an emergency department physician at [facility] in [place] and it was recommended that he come to the emergency department to be evaluated. Patient denies any alcohol use or street drugs. States he takes Suboxone and he has been taking this for about 2 years. He also reports significantly high stress at work. Chest Pain Score (Numeric/FACES): 3 - Related Data Allergies Allergy/AdvReac Type Severity Reaction Status Date / Time codeine Allergy Severe Shortness Verified 11/26/20 09:35 of Breath cephalexin monohydrate Allergy Hives Verified 11/26/20 09:35 [From Keflex] droperidol [From Inapsine] Allergy Anxiety Verified 11/26/20 09:35 Home Meds: Home Meds Buprenorphine HCl/Naloxone HCl [Suboxone 4 mg-1 mg Sl Film] 2 mg PO Q6HR 09/17/20 [History] Past Medical History - Past Health History Medical/Surgical History: Denies Medical/Surgical History HEENT History: Reports: Other (See Below) Other HEENT History: wears glasses Gastrointestinal History: Reports: Irritable Bowel Syndrome Musculoskeletal History: Reports: Back Pain, Chronic Other Musculoskeletal History: Herniated L4, L5, S1 Neurological History: Reports: Migraines Psychiatric History: Reports: Anxiety, Panic Attack Endocrine/Metabolic History: Reports: Obesity/BMI 30+ - Infectious Disease History Infectious Disease History: Reports: Chicken Pox, Influenza, Shingles - Past Surgical History HEENT Surgical History: Reports: Tonsillectomy Other HEENT Surgeries/Procedures: jaw surgery GI Surgical History: Reports: Hernia, Abdominal Other GI Surgeries/Procedures: hernia repair as Male Surgical History: Reports: Circumcision Endocrine Surgical History: Reports: None Neurological Surgical History: Reports: Other (See Below) Other Neurological Surgeries/Procedures: back pain with ruptured disc L4-5 and S1 Musculoskeletal Surgical History: Reports: Shoulder Surgery, Other (See Below) Other Musculoskeletal Surgeries/Procedures:: left achilles repair, left hand reconstruction, left shoulder arthroscopy Social & Family History - Family History Oncologic: Reports: Breast, Colon, Lung - Tobacco Use Tobacco Use Status *Q: Never Tobacco User - Caffeine Use Caffeine Use: Reports: None - Recreational Drug Use Recreational Drug Use: No - Living Situation & Occupation Living situation: Reports: , with Spouse 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 Denies: Fever, Chills, Diaphoresis HEENT: Reports: No Symptoms, Glasses Respiratory: Reports: No Symptoms. Denies: Shortness of Breath, Pleuritic Chest Pain, Cough, Sputum Cardiovascular: Reports: Palpitations. Denies: Chest Pain, Dyspnea on Exertion, Edema, Lightheadedness, Syncope Endocrine: Reports: No Symptoms GI/Abdominal: Reports: No Symptoms : Reports: No Symptoms Musculoskeletal: Reports: No Symptoms Skin: Reports: No Symptoms Neurological: Reports: No Symptoms Psychiatric: Reports: Anxiety Hematologic/Lymphatic: Reports: No Symptoms Immunologic: Reports: No Symptoms ED EXAM, GENERAL - Physical Exam Exam: See Below Exam Limited By: No Limitations General Appearance: Alert, WD/WN, Anxious Eye Exam: Bilateral Eye: PERRL Ears: Normal External Exam, Hearing Grossly Normal Nose: Normal Inspection Throat/Mouth: Normal Inspection, Normal Voice, No Airway Compromise Head: Atraumatic, Normocephalic Neck: Normal Inspection, Supple, Non-Tender, Full Range of Motion Respiratory/Chest: No Respiratory Distress, Lungs Clear, Normal Breath Sounds, No Accessory Muscle Use, Chest Non-Tender Cardiovascular: Normal Peripheral Pulses, Regular Rate, Rhythm Peripheral Pulses: 2+: Radial (L), Radial (R), Dorsalis Pedis (L), Dorsalis Pedis (R) GI/Abdominal: Normal Bowel Sounds, Soft, Non-Tender, No Distention (Male) Exam: Deferred Rectal (Males) Exam: Deferred Back Exam: Normal Inspection, Full Range of Motion Extremities: Normal Inspection, Normal Range of Motion, Non-Tender, No Pedal Edema, Normal Capillary Refill Neurological: Alert, Oriented, Normal Cognition Psychiatric: Normal Affect, Normal Mood Skin Exam: Warm, Dry, Intact, Normal Color, No Rash Lymphatic: No Adenopathy #1 Interpretation EKG Date: 11/26/20 Time: 09:35 Rhythm: NSR Rate (Beats/Min): 67 [place]: Normal P-Wave: Present QRS: Normal ST-T: Normal QT: Normal Comparison: No Change EKG Interpretation Comments: Per Dr. Key interpretation: Sinus rhythm ST elevation in lead II probable normal early repol pattern Course - Vital Signs Text/Narrative:: 55-year-old male presents to the emergency department to be evaluated for complaints of chest palpitations. This started at about 5 AM when he woke and he states it has decreased significantly since presenting to the emergency department. Denies any chest pain, diaphoresis, dyspnea or dizziness associated with this. He states he has been evaluated for this in the past and was never able to find a cardiac cause and was diagnosed with anxiety. He did follow-up with his primary care provider Ximena Johnson, but is not on any antianxiety medications. I have ordered a CBC, CMP, mag, troponin, EKG and a chest x-ray. Last Recorded V/S: Last Vital Signs Temp 98.2 F 11/26/20 09:38 Pulse 72 11/26/20 09:38 Resp 13 11/26/20 09:38 BP 128/85 11/26/20 09:38 Pulse Ox 98 11/26/20 09:38 - Orders/Labs/Meds Orders: Active Orders 24 hr Category Date Time Status EKG Documentation Completion [RC] STAT Care 11/26/20 09:53 Active Sodium Chloride 0.9% [Saline Flush] Med 11/26/20 09:53 Active 10 ml FLUSH ASDIRECTED PRN Saline Lock Insert [OM.PC] Stat Oth 11/26/20 09:53 Ordered Medication Orders Sodium Chloride (Saline Flush) 10 ml FLUSH ASDIRECTED PRN PRN Reason: Keep Vein Open Last Admin: 11/26/20 10:04 Dose: 10 ml Documented by: [place] Labs: Laboratory Tests 11/26/20 11/26/20 Range/Units 09:40 09:40 WBC 8.24 (4.23-9.07) K/mm3 RBC 5.24 (4.63-6.08) M/mm3 Hgb 15.2 (13.7-17.5) gm/dl Hct 44.7 (40.1-51.0) % MCV 85.3 (79.0-92.2) fl MCH 29.0 (25.7-32.2) pg MCHC 34.0 (32.2-35.5) g/dl RDW Std Deviation 40.7 (35.1-43.9) fL Plt Count 305 (163-337) K/mm3 MPV 10.2 (9.4-12.3) fl Neut % (Auto) 59.7 (34.0-67.9) % Lymph % (Auto) 27.7 (21.8-53.1) % [place] % (Auto) 8.0 (5.3-12.2) % Eos % (Auto) 3.4 (0.8-7.0) Baso % (Auto) 0.8 (0.1-1.2) % Neut # (Auto) 4.92 (1.78-5.38) K/mm3 Lymph # (Auto) 2.28 (1.32-3.57) K/mm3 [place] # (Auto) 0.66 (0.30-0.82) K/mm3 Eos # (Auto) 0.28 (0.04-0.54) K/mm3 Baso # (Auto) 0.07 (0.01-0.08) K/mm3 Sodium 142 (136-145) mEq/L Potassium 4.3 (3.5-5.1) mEq/L Chloride 104 (98-107) mEq/L Carbon Dioxide 29 (21-32) mEq/L Anion Gap 13.3 (5-15) BUN 17 (7-18) mg/dL Creatinine 0.8 (0.7-1.3) mg/dL Est Cr Clr Drug Dosing 106.79 mL/min Estimated GFR (MDRD) > 60 (>60) mL/min BUN/Creatinine Ratio 21.3 H (14-18) Glucose 108 H (74-106) mg/dL Calcium 8.9 (8.5-10.1) mg/dL Magnesium 2.3 (1.8-2.4) mg/dl Total Bilirubin 0.3 (0.2-1.0) mg/dL AST 18 (15-37) U/L ALT 39 (16-63) U/L Alkaline Phosphatase 84 (46-116) U/L Troponin I < 0.017 (0.00-0.056) ng/mL Total Protein 7.6 (6.4-8.2) g/dl Albumin 3.7 (3.4-5.0) g/dl Globulin 3.9 gm/dL Albumin/Globulin Ratio 1.0 (1-2) Meds: Medications Generic Name Dose Route Start Last Admin Trade Name Freq PRN Reason Stop Dose Admin Sodium Chloride 10 ml 11/26/20 09:53 11/26/20 10:04 Saline Flush FLUSH 10 ml ASDIRECTED PRN Administration Keep Vein Open - Radiology Interpretation Free Text/Narrative:: Portable chest x-ray radiology impression: 1.Nothing acute is appreciated on portable chest x-ray. 2. Scattered scarring within both lungs. - Re-Assessments/Exams Free Text/Narrative Re-Assessment/Exam: 11/26/20 11:04 CBC is unremarkable CMP reveals glucose of 108, troponin is negative at less than 0.017. I cannot find any cardiac origin to the patient's chest pain so he will be discharged to home. However I will recommend that he follow-up with his primary care physician Ximena Johnson to schedule him for an event monitor. Patient is still very anxious ambulating around the room so I will also give him a milligram of Ativan p.o. He states that he will follow-up with Ximena regarding his anxiety as well. Departure - Departure Time of Disposition: 11:09 Disposition: Home, Self-Care 01 Condition: Good Clinical Impression: Atypical chest pain Instructions: Nonspecific Chest Pain, Adult, [id number] Referrals: Ximena Johnson, MARKETING PROGRAM COORDINATOR [Primary Care Provider] - Forms: ED Department Discharge Additional Instructions: You were seen in the emergency department with complaints of heart palpitations. Full cardiac work-up was unremarkable. This included an EKG, chest x-ray and lab work all of which were negative for cardiac origin of your palpitations. You also noted to have a significant amount of stress and anxiety so you were given 1 mg of Ativan by mouth. You should not drive or operate heavy machinery within an hour of taking this medication. Will be discharged to home recommend that you follow-up with your primary care physician Ximena Johnson to discuss an event monitor and the potential need for antianxiety medications. Should your condition worsen or change please return to the emergency department. Sepsis Event Note (ED) - Evaluation Sepsis Screening Result: No Definite Risk - Focused Exam Vital Signs: Vital Signs Temp Pulse Resp BP Pulse Ox 11/26/20 09:38 98.2 F 72 13 128/85 98 - My Orders Last 24 Hours: My Active Orders 11/26/20 09:53 EKG Documentation Completion [RC] STAT Sodium Chloride 0.9% [Saline Flush] 10 ml FLUSH ASDIRECTED PRN Saline Lock Insert [OM.PC] Stat - Assessment/Plan Last 24 Hours: My Active Orders 11/26/20 09:53 EKG Documentation Completion [RC] STAT Sodium Chloride 0.9% [Saline Flush] 10 ml FLUSH ASDIRECTED PRN Saline Lock Insert [OM.PC] Stat
--- NOTE | 2020-11-26 10:25 | CR ---
Chest: Portable view of the chest was obtained. Comparison: Prior chest x-ray of 04/04/17. Scattered areas of scarring are seen within both lungs. No acute parenchymal change is appreciated. Heart size is within normal limits for portable technique. Upper mediastinum appears within normal limits. Bony structures are grossly intact. Impression: 1. Scattered scarring within both lungs. 2. Nothing acute is appreciated on portable chest x-ray. Diagnostic code #2
[2020-11-26] MEDS ORDERED: LORazepam 1 MG Tab PO ONE (11:06)
== END 2020-11-26 11:30 | disposition home or self-care (01) ==
LOC: JD.ED 09:23
DX: R07.89 Other chest pain (principal); R00.2 Palpitations; E66.9 Obesity, unspecified; Z88.5 Allergy status to narcotic agent; Z88.8 Allergy status to other drugs, medicaments and biological substances; Z88.1 Allergy status to other antibiotic agents; Z68.32 Body mass index [BMI] 32.0-32.9, adult
CPT/HCPCS: 36415; 71045; 80053; 83735; 84484; 85025; 93005; 99285; A9270; 93010; 99284

== ENCOUNTER 2021-07-09 04:11 | Emergency (ER) | payer OTHER ==
[2021-07-09 04:30] VITALS: BP 165/101
[2021-07-09] MEDS ORDERED: LORazepam 1 MG Tab PO ONE (05:31)
--- NOTE | 2021-07-09 05:34 | EDM.PDOCBH ---
ED HPI GENERAL MEDICAL PROBLEM - General Chief Complaint: Behavioral/Psych Stated Complaint: PANIC ATTACK Time Seen by Provider: 07/09/21 05:13 Source of Information: Reports: Patient, Family () History Limitations: Reports: No Limitations - History of Present Illness INITIAL COMMENTS - FREE TEXT/NARRATIVE: Mr. eWi is a very pleasant 55-year-old gentleman who now presents the ED stating that he woke up around 01:30 this morning with a panic attack, feeling like he was crawling out of his skin. He states that he took several supplements and a long walk, with no relief. The patient has a history of untreated anxiety. He states that he gets similar symptoms about twice a year, and that he usually comes to the ED where he is treated with Ativan, which resolves his symptoms. He states that without Ativan, his symptoms may last anywhere from 12 hours to 3 days. The patient has an addiction to opioids, on Suboxone for approximately 8 years. Here in the ED, the patient's initial BP is found to be elevated at 165/101, otherwise, he is hemodynamically stable, afebrile, saturating 92% on room air. He appears to be somewhat anxious, continuously pacing the exam room. Prior to this morning, the patient denies having a recent fever, chills, sore throat, ear pain, nasal or sinus congestion, cough, dyspnea, chest pain, palpitations, nausea, vomiting, constipation, diarrhea, abdominal pain, urinary symptoms, recent weight gain or weight loss, recent bloody bowel movements or black bowel movements, recent joint aches, headaches, or rashes. The patient's PCP is Ximena Johnson NP. He states that he last saw her about 1 year ago. His Suboxone is prescribed by Dr. Calixto Novoa, an Acid Painter in [place]. He has not received a COVID vaccination. - Related Data Allergies Allergy/AdvReac Type Severity Reaction Status Date / Time codeine Allergy Severe Shortness Verified 07/09/21 04:30 of Breath cephalexin monohydrate Allergy Hives Verified 07/09/21 04:30 [From Keflex] droperidol [From Inapsine] Allergy Anxiety Verified 07/09/21 04:30 Home Meds: Home Meds Buprenorphine HCl/Naloxone HCl [Suboxone 4 mg-1 mg Sl Film] 2 mg PO Q6HR 09/17/20 [History] Past Medical History HEENT History: Reports: Impaired Vision (wears glasses) Gastrointestinal History: Reports: Colon Polyp, PUD Musculoskeletal History: Reports: Back Pain, Chronic (lumbar DDD) Psychiatric History: Reports: Anxiety (untreated), Panic Attack Endocrine/Metabolic History: Reports: Obesity/BMI 30+ - Infectious Disease History Infectious Disease History: Reports: Chicken Pox, Influenza, Shingles - Past Surgical History HEENT Surgical History: Reports: Tonsillectomy GI Surgical History: Reports: Colonoscopy (x 2), EGD (x 1), Hernia, Abdominal (periumbilical) Male Surgical History: Reports: Circumcision Musculoskeletal Surgical History: Reports: Shoulder Surgery (left, arthroscopic), Other (See Below) (Left hand reconstruction. 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 ED EXAM, BEHAVIORAL HEALTH - Physical Exam Exam: See Below Exam Limited By: No Limitations General Appearance: Alert, WD/WN, Anxious (pacing in exam room) Eye Exam: Bilateral Eye: EOMI, Normal Inspection Ears: Normal External Exam, Hearing Grossly Normal Nose: Normal Inspection Throat/Mouth: Normal Inspection, Normal Lips, Normal Voice, No Airway Compromise Head: Atraumatic, Normocephalic Neck: Normal Inspection, Full Range of Motion Respiratory/Chest: No Respiratory Distress, Lungs Clear, Normal Breath Sounds, No Accessory Muscle Use Cardiovascular: Normal Peripheral Pulses, Regular Rate, Rhythm, No Gallop, No JVD, No Murmur, No Rub GI/Abdominal: Normal Bowel Sounds, Soft, Non-Tender, No Organomegaly, No Distention, No Abnormal Bruit, No Mass Back Exam: Normal Inspection, Full Range of Motion, NT Extremities: Normal Inspection, Normal Range of Motion, Normal Capillary Refill Neurological: Alert, Normal Cognition, No Motor/Sensory Deficits, Oriented x 3 Psychiatric: Oriented, Restless Skin Exam: Warm, Dry, Intact, Normal color, No rash COURSE, BEHAVIORAL HEALTH COMP - Course Vital Signs: Last Vital Signs Temp 36.2 C 07/09/21 04:26 Pulse 75 07/09/21 05:50 Resp 18 07/09/21 05:50 BP 165/101 H 07/09/21 04:26 Pulse Ox 98 07/09/21 05:50 Orders, Labs, Meds: Medications Discontinued Medications Generic Name Dose Route Start Last Admin Trade Name Delq PRN Reason Stop Dose Admin Lorazepam 1 mg 07/09/21 05:31 07/09/21 05:39 Lorazepam 1 Mg Tab PO 07/09/21 05:32 1 mg ONETIME ONE Administration Medical Clearance: 07/09/21 05:32 As above, the patient, who has an untreated anxiety disorder, woke with a panic attack, feeling like he is crawling out of his skin, around 01:30 this morning. His symptoms fail to improve despite taking several supplements. He gets similar symptoms once or twice a year, and usually comes to the ED, where he was given some Ativan, his symptoms resolved, and he goes on his way. I will do the same again for him tonight, again with the recommendation that he follow-up with his PCP to discuss long-term treatment options for anxiety. I noticed that the patient's oxygen saturation was 92% on room air. It was 98% on room air when he was last seen in this ED on 11/26/2020. Although his presenting symptoms are not indicative of COVID-19, I recommended that he be tested, and he agreed. 07/09/21 05:38 Notified by Bruna GARAY that, although the patient has undergone several COID tests in the past, he is currently "freaking out" and refused to get tested again. He stated that he will follow up with his PCP instead. I will discharge him home. Departure - Departure Time of Disposition: 05:34 Disposition: Home, Self-Care 01 Condition: Good Clinical Impression: Panic attack, Low oxygen saturation - Discharge Information *PRESCRIPTION DRUG MONITORING PROGRAM REVIEWED*: Yes *COPY OF PRESCRIPTION DRUG MONITORING REPORT IN PATIENT MANDO: No Instructions: Panic Attack, [id number] Referrals: Ximena Johnson NP [Primary Care Provider] - Calixto Novoa DO [Ordering Only Provider] - Forms: ED Department Discharge Additional Instructions: You were seen in the emergency room after waking up this morning with a panic attack. In the ER, your oxygen saturation was found to be low at 92%. Testing for the SARS-CoV-2 virus was recommended, but declined. Your anxiety was treated with a dose of Ativan in the ER. Going forward, we strongly recommend that you follow-up with your PCP, Ximena Johnson NP, to discuss long-term treatment for anxiety. We also recommend that you follow-up at the COVID clinic to get tested. In the meantime, we recommend that you quarantine until you get your test results so as to not spread the virus if you are infected. If any other problems, please do not hesitate to return to the ER. Sepsis Event Note (ED) - Evaluation Sepsis Screening Result: No Definite Risk - Focused Exam Vital Signs: Vital Signs Temp Pulse Resp BP Pulse Ox 07/09/21 05:50 75 18 98 07/09/21 04:26 36.2 C 64 20 165/101 H 92 L
[2021-07-09 06:02] VITALS: PULSE 75
== END 2021-07-09 06:01 | disposition home or self-care (01) ==
LOC: JD.ED 04:11
DX: F41.0 Panic disorder [episodic paroxysmal anxiety] (principal); R09.02 Hypoxemia; E66.9 Obesity, unspecified; Z68.37 Body mass index [BMI] 37.0-37.9, adult; Z87.891 Personal history of nicotine dependence; Z88.5 Allergy status to narcotic agent; Z88.1 Allergy status to other antibiotic agents; Z88.8 Allergy status to other drugs, medicaments and biological substances
CPT/HCPCS: 99283; A9270

== ENCOUNTER 2022-11-22 18:29 | Emergency (ER) | payer OTHER ==
[2022-11-22 18:47] VITALS: BP 147/82; PULSE 87
== END 2022-11-22 19:24 | disposition home or self-care (01) ==
LOC: JD.ED 18:29
DX: M25.521 Pain in right elbow (principal); E66.9 Obesity, unspecified; Z68.41 Body mass index [BMI] 40.0-44.9, adult; Z88.5 Allergy status to narcotic agent; Z88.1 Allergy status to other antibiotic agents; Z88.8 Allergy status to other drugs, medicaments and biological substances; Z79.899 Other long term (current) drug therapy; Z86.16 Personal history of COVID-19
CPT/HCPCS: 99283

== ENCOUNTER 2023-02-06 11:04 | Emergency (ER) | payer OTHER ==
[2023-02-06 11:26] VITALS: BP 126/90; PULSE 92
[2023-02-06] MEDS ORDERED: LORazepam 2 MG/ML SDV IVPUSH ONE (11:44)
== END 2023-02-06 13:45 | disposition home or self-care (01) ==
LOC: JD.ED 11:04
DX: F41.0 Panic disorder [episodic paroxysmal anxiety] (principal); I44.0 Atrioventricular block, first degree; E66.9 Obesity, unspecified; Z68.41 Body mass index [BMI] 40.0-44.9, adult; Z86.16 Personal history of COVID-19; Z87.891 Personal history of nicotine dependence; Z88.5 Allergy status to narcotic agent; Z88.1 Allergy status to other antibiotic agents; Z88.8 Allergy status to other drugs, medicaments and biological substances; Z79.899 Other long term (current) drug therapy
CPT/HCPCS: 36415; 71045; 80053; 80306; 80307; 81001; 83880; 84484; 85025; 93005; 96374; 99284; J2060

== ENCOUNTER 2023-09-30 22:07 | Emergency (ER) | payer OTHER ==
[2023-09-30 22:17] VITALS: BP 152/103; PULSE 97
[2023-09-30] MEDS ORDERED: HYDROmorphone 1 MG/ML Syringe IM ONE (22:24)
[2023-09-30] MEDS ORDERED: Ketorolac 60 MG/2 ML SDV IM ONE (22:24)
== END 2023-09-30 22:49 | disposition home or self-care (01) ==
LOC: JD.ED 22:07
DX: K04.7 Periapical abscess without sinus (principal); E66.9 Obesity, unspecified; Z86.16 Personal history of COVID-19; Z79.899 Other long term (current) drug therapy; Z88.1 Allergy status to other antibiotic agents; Z88.8 Allergy status to other drugs, medicaments and biological substances; Z88.6 Allergy status to analgesic agent; Z68.37 Body mass index [BMI] 37.0-37.9, adult
CPT/HCPCS: 96372; 99282; J1170; J1885

== ENCOUNTER 2023-12-25 13:43 | Emergency (ER) | payer OTHER ==
[2023-12-25 13:56] VITALS: PULSE 90
[2023-12-25] MEDS ORDERED: Lidocaine 1% with EPINEPHrine 1:100,000 10 ML MDV INJECT ONE (14:02)
[2023-12-25] MEDS: Diphtheria,Pertussis(Acell),Tetanus Vaccine 0.5 ML Syringe IM ONE (14:13)
[2023-12-25] MEDS: Lidocaine 1% with EPINEPHrine 1:100,000 20 ML MDV INJECT ONE (14:14)
[2023-12-25 14:34] VITALS: BP 139/98
== END 2023-12-25 14:30 | disposition home or self-care (01) ==
LOC: JD.ED 13:43
DX: S01.01XA Laceration without foreign body of scalp, initial encounter (principal); E66.9 Obesity, unspecified; Z68.38 Body mass index [BMI] 38.0-38.9, adult; Z88.5 Allergy status to narcotic agent; Z88.1 Allergy status to other antibiotic agents; Z88.8 Allergy status to other drugs, medicaments and biological substances; Z23 Encounter for immunization; Z79.899 Other long term (current) drug therapy; Z86.16 Personal history of COVID-19; W01.198A Fall on same level from slipping, tripping and stumbling with subsequent striking against other object, initial encounter
CPT/HCPCS: 12002; 90471; 90715; 99282-25; J3490

== ENCOUNTER 2024-01-07 11:17 | Emergency (ER) | payer OTHER ==
[2024-01-07 11:52] VITALS: BP 147/82; PULSE 83
== END 2024-01-07 13:40 | disposition home or self-care (01) ==
LOC: JD.ED 11:17
DX: S01.01XD Laceration without foreign body of scalp, subsequent encounter (principal); Z48.02 Encounter for removal of sutures; I10 Essential (primary) hypertension; E66.9 Obesity, unspecified; Z79.899 Other long term (current) drug therapy; Z88.5 Allergy status to narcotic agent; Z88.1 Allergy status to other antibiotic agents; Z88.8 Allergy status to other drugs, medicaments and biological substances; X58.XXXD Exposure to other specified factors, subsequent encounter
CPT/HCPCS: 99281

== ENCOUNTER 2024-07-02 05:31 | Emergency (ER) | payer OTHER ==
[2024-07-02] MEDS: LORazepam 1 MG Tab PO ONE (06:05)
[2024-07-02 06:16] VITALS: BP 137/94; PULSE 77
== END 2024-07-02 06:18 | disposition home or self-care (01) ==
LOC: JD.ED 05:31
DX: F41.9 Anxiety disorder, unspecified (principal); E66.9 Obesity, unspecified; Z88.8 Allergy status to other drugs, medicaments and biological substances; Z79.899 Other long term (current) drug therapy; Z86.16 Personal history of COVID-19; Z68.39 Body mass index [BMI] 39.0-39.9, adult
CPT/HCPCS: 99283; A9270

== ENCOUNTER 2024-08-18 10:20 | Emergency (ER) | payer OTHER ==
[2024-08-18 11:17] LABS: BASOPHILS ABSOLUTE AUTO 0.1 K/mm3 (0.0-0.2); BASOPHILS PERCENT AUTO 1.6 % (0.0-1.0); EOSINOPHILS ABSOLUTE AUTO 0.3 K/mm3 (0.0-0.4); HEMATOCRIT 54.6 % (42.0-52.0); HEMOGLOBIN 18.7 gm/dl (14.0-18.0); IMMATURE GRAN ABSOLUTE AUTO 0.08 K/mm3 (0.00-0.05); LYMPHOCYTES ABSOLUTE AUTO 2.3 K/mm3 (1.0-4.8); LYMPHOCYTES PERCENT AUTO 27.8 % (24.0-44.0); MEAN CORPUSCULAR HGB CONC 34.2 g/dl (32.0-36.0); MEAN CORPUSCULAR VOLUME 87.6 fl (83.0-99.0); MEAN PLATELET VOLUME 11.5 fl (9.4-12.4); MONOCYTES ABSOLUTE AUTO 0.9 K/mm3 (0.0-0.8); MONOCYTES PERCENT AUTO 11.2 % (0.0-8.0); NEUTROPHILS ABSOLUTE AUTO 4.6 K/mm3 (1.8-7.7); NEUTROPHILS PERCENT AUTO 55.4 % (41.0-71.0); PLATELET COUNT,PLT 306 K/mm3 (150-400); RED BLOOD CELL COUNT 6.23 M/mm3 (4.52-5.90); WHITE BLOOD CELL COUNT,WBC 8.24 K/mm3 (3.9-11.3)
[2024-08-18 11:25] LABS: A/G RATIO 0.9 (1-2); ALBUMIN 4.1 g/dl (3.4-5.0); ANION GAP 10.6 (5-15); BILIRUBIN TOTAL 0.5 mg/dL (0.2-1.0); BUN/CREATININE RATIO 14.4 (14-18); CALCIUM 9.8 mg/dL (8.5-10.1); CREATININE 0.9 mg/dL (0.7-1.3); EST CRCL DRUG DOSING (CG) 85.69 mL/min; PROTEIN TOTAL,TP 8.8 g/dl (6.4-8.2)
[2024-08-18 11:26] LABS: POTASSIUM,K 4.6 mEq/L (3.5-5.1)
[2024-08-18 12:51] VITALS: BP 142/82; PULSE 74
== END 2024-08-18 12:41 ==
LOC: JD.ED 10:20
DX: R60.0 Localized edema (principal); I10 Essential (primary) hypertension; E66.9 Obesity, unspecified; Z79.899 Other long term (current) drug therapy; Z88.1 Allergy status to other antibiotic agents; Z88.5 Allergy status to narcotic agent; Z88.8 Allergy status to other drugs, medicaments and biological substances
CPT/HCPCS: 36415; 80053; 82947; 85025; 93971-26-LT; 93971-LT; 99282; 99284

== ENCOUNTER 2024-10-13 02:57 | Emergency (ER) | payer OTHER ==
[2024-10-13 03:13] VITALS: BP 149/86; PULSE 89
[2024-10-13] MEDS: Prochlorperazine 5 MG Tab PO PRN (03:26)
[2024-10-13] MEDS: Pseudoephedrine 30 MG Tab PO ONE (03:27)
[2024-10-13] MEDS: HYDROmorphone 1 MG/ML Syringe IM ONE (03:27)
[2024-10-13] MEDS: Dexamethasone 6 MG TABLET PO ONE (03:34)
== END 2024-10-13 03:48 | disposition home or self-care (01) ==
LOC: JD.ED 02:57
DX: H65.03 Acute serous otitis media, bilateral (principal); H69.93 Unspecified Eustachian tube disorder, bilateral; I10 Essential (primary) hypertension; E66.9 Obesity, unspecified; Z90.89 Acquired absence of other organs; Z88.5 Allergy status to narcotic agent; Z88.8 Allergy status to other drugs, medicaments and biological substances; Z79.52 Long term (current) use of systemic steroids; Z79.899 Other long term (current) drug therapy; Z68.39 Body mass index [BMI] 39.0-39.9, adult
CPT/HCPCS: 96372; 99282; A9270; J1171; J8540; Q0164; 99284

== ENCOUNTER 2025-01-25 19:31 | Emergency (ER) | payer OTHER ==
[2025-01-25] MEDS ORDERED: Acetaminophen 325 MG Tab PO ONE (19:35)
[2025-01-25] MEDS ORDERED: Ketorolac 60 MG/2 ML SDV IM ONE (19:35)
[2025-01-25] MEDS ORDERED: oxyCODONE 5 MG Tab PO ONE (19:36)
[2025-01-25 19:47] VITALS: BP 144/81; PULSE 92
== END 2025-01-25 20:18 | disposition home or self-care (01) ==
LOC: JD.ED 19:31
DX: J34.89 Other specified disorders of nose and nasal sinuses (principal); I10 Essential (primary) hypertension; Z88.5 Allergy status to narcotic agent; Z88.1 Allergy status to other antibiotic agents; Z88.8 Allergy status to other drugs, medicaments and biological substances; Z79.899 Other long term (current) drug therapy; Z87.09 Personal history of other diseases of the respiratory system
CPT/HCPCS: 99283